=== PATIENT | female | born 1940 | race Caucasian/White ===

== ENCOUNTER → 2016-04-27 | Outpatient (CLI) | payer MEDICARE ==
[~2016-04-27] MED LIST: ASPIRIN 81MG TA81 MG PO; CELEXA10 MG PO; CITRACAL200 MG PO; CITRUCEL479 GM PO; CLARITIN 10MG T10 MG PO; CYANOCOBAL1000 MCG/M IM; CYMBALTA60 MG PO; DILTIAZEM240 MG PO; ELIQUIS2.5 MG PO; ELIQUIS5 MG PO; FLONASE 50 MCG16 GM; HYDROCHLOROTH12.5 M1 PO; LOVASTATIN20 MG PO; MIRALAX17 GM/PACK PO; OMEPRAZOLE20 MG PO; TOPROL XL 100M100 MG PO; TOPROL XL 50MG50 MG PO; TYLENOL 8 HOUR650 MG PO; TYLENOL ES500 MG PO; XANAX 0.5MG TA0.5 MG PO
--- NOTE | 2016-04-27 16:26 | RADIOLOGY REPORT PS360 ---
HUMERUS-RT HISTORY: FU FX HUMERUS COMPARISON: 04/11/2016 FINDINGS: The previously noted avulsion at the base of the greater tuberosity is less apparent on today's study suggesting healing. 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
== END ==
LOC: RAD 12:50
DX: S42.291D Other displaced fracture of upper end of right humerus, subsequent encounter for fracture with routine healing (principal)

== ENCOUNTER → 2016-10-02 | Outpatient (CLI) | payer MEDICARE ==
[~2016-10-02] MED LIST changes: +CELEXA20 MG PO; +METOPROLOL 25 M25 MG PO; +MICROZIDE12.5 MG PO
[2016-10-02 11:41] LABS: LYMPH # 1.7 K/mm3 (0.7-4.5); LYMPH % 14.8 % (10-50.0)
[2016-10-02 11:43] LABS: HEMOGLOBIN 8.7 g/dL (12.2-16.2)
== END ==
LOC: LAB 11:30
PROVIDERS: Internal Medicine
DX: I95.1 Orthostatic hypotension (principal)

== ENCOUNTER → 2016-11-20 | Outpatient (CLI) | payer MEDICARE ==
[~2016-11-20] MED LIST changes: +AMIODARONE 200200 MG PO; +AMIODARONE HCL400 MG PO; +CARDIZEM CD 12120 MG PO; +CYANOCOBAL1000 MCG/1 SC; +CYTOTEC 200MC200 MC1 PO; +DIGITEK125 MCG PO; +FERROUS SULFAT325 M2 PO; +LEVOTHYROXINE0.05 M2 PO; +MIRALAX(PO17 GM/1 PA PO; +PREDNISONE2.5 MG PO; +VERAPAMIL HYDR300 MG PO; +VITAMIN D31000 IU PO
[2016-11-20 11:15] LABS: BILIRUBIN, INDIRECT 0.21 mg/dL (0-0.9); BUN 13 mg/dL (7-18); FREE THYROXIN INDEX 8.7 ug/dl (5.93-13.13)
[2016-11-20 11:18] LABS: GFR (ESTIMATED) 48 ML/MIN (59-)
[2016-11-21 11:52] LABS: HEMOGLOBIN 12.4 g/dL (12.2-16.2); LYMPH # 1.8 K/mm3 (0.7-4.5); LYMPH % 20.3 % (10-50.0)
== END ==
LOC: LAB 09:55
PROVIDERS: Internal Medicine Cardiovascular Disease
DX: I48.91 Unspecified atrial fibrillation (principal); I10 Essential (primary) hypertension; E03.9 Hypothyroidism, unspecified; R53.83 Other fatigue; R53.1 Weakness; R68.89 Other general symptoms and signs; G47.10 Hypersomnia, unspecified

== ENCOUNTER → 2016-12-13 | Outpatient (CLI) | payer MEDICARE ==
[2016-12-13 15:35] LABS: BUN 13 mg/dL (7-18)
[2016-12-13 15:44] LABS: GFR (ESTIMATED) 54 ML/MIN (59-)
== END ==
LOC: LAB 12:29
PROVIDERS: Internal Medicine Cardiovascular Disease
DX: I48.91 Unspecified atrial fibrillation (principal); I10 Essential (primary) hypertension; E03.9 Hypothyroidism, unspecified; E78.5 Hyperlipidemia, unspecified; Z79.01 Long term (current) use of anticoagulants

== ENCOUNTER 2017-01-02 12:28 | Emergency (ER) | payer MEDICARE ==
[~2017-01-02] VITALS: Ht 165.1 cm; Wt 81.6 kg
--- NOTE | 2017-01-02 13:42 | Urgent Treatment Center Report ---
History of Present Issue Date/Time Seen by Provider 01/02/17 1316 Visit Reason Pt arrived:Walked Presenting Problem:SKIN TAG ON HER VAGINAL AREA THAT HAS BEEN THERE FOR 2 WEEKS AND IS S STARTING TO GET SORE Location if Accident: Onset of symptoms date/time:/ or onset unknown for:MEDICAL HX UNKNOWN Have you (or family members/close friends) recently traveled outside the [place]? N If Yes, where/when: Have you had exposure to infectious disease within the past month? TB? Other? Specify: Patient state that she noticed that she has a skin tag on he "lip" of her vagina. States that at times her underwear rubs it and it has been there for over 2 weeks States that she made an appointment with her OBGYN but he couldn't get her in to later in the month and she wanted to come to see if we could take it off ALLERGIES Coded Allergies: No Known Allergies (10/27/16) Home Medications Active Scripts Metoprolol Tartrate (Metoprolol 25MG) 50 MG PO BID #60 TAB Ref 2 Prov: 10/27/16 Amiodarone Hcl 400 MG PO BID #60 TAB Prov: 11/01/16 Diltiazem Hcl (Cardizem Cd 120MG Cap) 120 MG PO DAILY #30 CAP Prov: 11/01/16 Reported Medications Alprazolam (Xanax 0.5MG) 0.5 MG PO BIDP Lovastatin 20 MG PO QHS DULOXETINE HCL (Cymbalta 60MG) 30 MG PO DAILY Ferrous Sulfate (Ferrous Sulfate 325MG) 325 MG PO DAILY Prednisone 5 MG PO QAM VITAMIN B12 (Cyanocobalamin Injection) 1 ML IM DAILY CHOLECALCIFEROL (VITAMIN D3) (Vitamin D) 1 TAB PO DAILY Misoprostol (Cytotec 200MCG Tab) 200 MCG PO BID #60 TAB Levothyroxine Sodium 0.05 MG PO DAILY #90 Apixaban (Eliquis) 5 MG PO BID Omeprazole (Omeprazole 20MG) 20 MG PO DAILY History Medical History General CAD? No Angina: No [place]: No Hypertension? Yes Hyperlipidemia? Yes CHF? No DVT? No PE? No COPD? No Asthma? No Anemia? No GERD? Yes Gastric ulcers? No GI Bleed? No Hernia? No Thyroid Problems? Yes Hypothyroidism? Yes CVA? No Seizures? No Diabetes? No Renal Insuffiency? No UTI? Yes Stones? Yes BPH? No GB Disease: Yes Nephritic Syndrome? No Asplenia? No Hepatitis? No Sickle Cell Disease? No Arthritis? Yes Migraines? No Cataracts? No Glaucoma? No MRSA? No HIV? No TB? No Anxiety? Yes Depression? No Cancer? No More? Yes Additional hx: FIBROMYALGIA AFIB Immunization HX DT/Tetanus > 10 Years Ago Flu Flu Season Pneumonia Refuses Surgical Hx Previous Surgery?Y ANGIOGRAM 30 YRS AGO COLONOSCOPY FB REMOVAL LEFT LEG LAP [facility] (02/26/06) Family History Family HX Diabetes No CAD Yes Hypertension Yes Hyperlipidemia Yes Cancer No TB No Social History Smoking Hx Smoker: Never Smoker Tobacco: No Packs/day < 1 Pack Alcohol Alcohol: No Review of Systems All Other Systems Reviewed and Negative Physical Exam Vital Signs Vital Signs Date Time Temp Pulse Resp B/P Pulse O2 O2 Flow FiO2 Ox Delivery Rate 01/02 1244 97.8 78 14 140/82 98 General Appearance normal appearance, WD/WN, no apparent distress Respiratory Status Yes: trachea midline, chest symmetrical, non tender chest. No: respiratory distress. 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 No Progress [facility] Progress Notes Comment Talked with Dr Roque office advised that they would place patient customer operations specialist list if someone canceled to get her in sooner Departure Departure Time of Disposition 1334 Disposition DC Home or Self Care(routine) Clinical Impression Primary Impression: Skin tag of vaginal mucosa Condition STABLE Referrals Luis GARVEY,James Meadows (Family) Additional Instructions Follow up with Dr Muir as instructed Leave area alone and do not pull or touch area Follow up with family doctor if irritation continues Discharge Counseling Counseled pt/family regarding diagnosis, home care, follow up needs at 1341
--- NOTE | 2017-01-02 13:42 | Urgent Treatment Center Report ---
History of Present Issue Date/Time Seen by Provider 01/02/17 1316 Visit Reason Pt arrived:Walked Presenting Problem:SKIN TAG ON HER VAGINAL AREA THAT HAS BEEN THERE FOR 2 WEEKS AND IS S STARTING TO GET SORE Location if Accident: Onset of symptoms date/time:/ or onset unknown for:MEDICAL HX UNKNOWN Have you (or family members/close friends) recently traveled outside the [place]? N If Yes, where/when: Have you had exposure to infectious disease within the past month? TB? Other? Specify: Patient state that she noticed that she has a skin tag on he "lip" of her vagina. States that at times her underwear rubs it and it has been there for over 2 weeks States that she made an appointment with her OBGYN but he couldn't get her in to later in the month and she wanted to come to see if we could take it off ALLERGIES Coded Allergies: No Known Allergies (10/27/16) Home Medications Active Scripts Metoprolol Tartrate (Metoprolol 25MG) 50 MG PO BID #60 TAB Ref 2 Prov: 10/27/16 Amiodarone Hcl 400 MG PO BID #60 TAB Prov: 11/01/16 Diltiazem Hcl (Cardizem Cd 120MG Cap) 120 MG PO DAILY #30 CAP Prov: 11/01/16 Reported Medications Alprazolam (Xanax 0.5MG) 0.5 MG PO BIDP Lovastatin 20 MG PO QHS DULOXETINE HCL (Cymbalta 60MG) 30 MG PO DAILY Ferrous Sulfate (Ferrous Sulfate 325MG) 325 MG PO DAILY Prednisone 5 MG PO QAM VITAMIN B12 (Cyanocobalamin Injection) 1 ML IM DAILY CHOLECALCIFEROL (VITAMIN D3) (Vitamin D) 1 TAB PO DAILY Misoprostol (Cytotec 200MCG Tab) 200 MCG PO BID #60 TAB Levothyroxine Sodium 0.05 MG PO DAILY #90 Apixaban (Eliquis) 5 MG PO BID Omeprazole (Omeprazole 20MG) 20 MG PO DAILY History Medical History General CAD? No Angina: No [place]: No Hypertension? Yes Hyperlipidemia? Yes CHF? No DVT? No PE? No COPD? No Asthma? No Anemia? No GERD? Yes Gastric ulcers? No GI Bleed? No Hernia? No Thyroid Problems? Yes Hypothyroidism? Yes CVA? No Seizures? No Diabetes? No Renal Insuffiency? No UTI? Yes Stones? Yes BPH? No GB Disease: Yes Nephritic Syndrome? No Asplenia? No Hepatitis? No Sickle Cell Disease? No Arthritis? Yes Migraines? No Cataracts? No Glaucoma? No MRSA? No HIV? No TB? No Anxiety? Yes Depression? No Cancer? No More? Yes Additional hx: FIBROMYALGIA AFIB Immunization HX DT/Tetanus > 10 Years Ago Flu Flu Season Pneumonia Refuses Surgical Hx Previous Surgery?Y ANGIOGRAM 30 YRS AGO COLONOSCOPY FB REMOVAL LEFT LEG LAP [facility] (02/26/06) Family History Family HX Diabetes No CAD Yes Hypertension Yes Hyperlipidemia Yes Cancer No TB No Social History Smoking Hx Smoker: Never Smoker Tobacco: No Packs/day < 1 Pack Alcohol Alcohol: No Review of Systems All Other Systems Reviewed and Negative Physical Exam Vital Signs Vital Signs Date Time Temp Pulse Resp B/P Pulse O2 O2 Flow FiO2 Ox Delivery Rate 01/02 1244 97.8 78 14 140/82 98 General Appearance normal appearance, WD/WN, no apparent distress Respiratory Status Yes: trachea midline, chest symmetrical, non tender chest. No: respiratory distress. Cardiovascular normal exam, regular rate/rhythm, no peripheral edema, no gallop Pelvic small raised sking colored area on left labia no redness no warmth Neurologic alert, cyanide pot hardener II-XII nml as tested, normal exam, no motor/sensory deficits Medical Decision Making LABS/Meds/Orders Pt receiving controlled substance in ED? No Progress [facility] Progress Notes Comment Talked with Dr Roque office advised that they would place patient dog control officer list if someone canceled to get her in sooner Departure Departure Time of Disposition 1334 Disposition DC Home or Self Care(routine) Clinical Impression Primary Impression: Skin tag of vaginal mucosa Condition STABLE Referrals Luis GARVEY,James Meadows (Family) Additional Instructions Follow up with Dr Muir as instructed Leave area alone and do not pull or touch area Follow up with family doctor if irritation continues Discharge Counseling Counseled pt/family regarding diagnosis, home care, follow up needs at 1341
[2017-01-02 13:43] VITALS: BP 140/82
== END 2017-01-02 13:44 | disposition home or self-care (01) ==
LOC: UTC 12:28
DX: D28.0 Benign neoplasm of vulva (principal); I10 Essential (primary) hypertension; E78.5 Hyperlipidemia, unspecified; I48.2 Chronic atrial fibrillation; K21.9 Gastro-esophageal reflux disease without esophagitis; E03.9 Hypothyroidism, unspecified

== ENCOUNTER 2017-03-02 10:27 | Emergency (ER) | payer MEDICARE ==
[~2017-03-02] VITALS: Ht 165.1 cm; Wt 82.1 kg
--- OUTSIDE RECORDS SUMMARY | 2017-03-02 10:33 | External Medical Summary Rpt | CCD ---
Demographics Preferred Language Arabic Marital Status Unknown Sabianist Affiliation Unknown Race Unknown Ethnic Group Unknown Author Author , DAVIS CANNON Address Unknown Phone Immunization No patient found.
--- OUTSIDE RECORDS SUMMARY | 2017-03-02 10:33 | External Medical Summary Rpt | CCD ---
Demographics Preferred Language Persian Marital Status Unknown Anabaptist Affiliation Unknown Race Unknown Ethnic Group Unknown Author Author , DAVIS CANNON Address Unknown Phone Immunization No patient found.
--- OUTSIDE RECORDS SUMMARY | 2017-03-02 10:33 | External Medical Summary Rpt | CCD ---
Author Author , DAVIS CANNON Address Unknown Phone [email or web address] Purpose Continuity of Care Document - through 2016 Problems Code Diagnosis DOS Provider Status I48.91 UNSPECIFIED ATRIAL FIBRILLATIO N M54.2 CERVICALGIA N28.9 DISORDER OF KIDNEY AND URETER, UNSPECIFIED
--- OUTSIDE RECORDS SUMMARY | 2017-03-02 10:33 | External Medical Summary Rpt | CCD ---
Author Author , DAVIS CANNON Address Unknown Phone [email or web address] Purpose Continuity of Care Document - through 2016 Problems Code Diagnosis DOS Provider Status I48.91 UNSPECIFIED ATRIAL FIBRILLATIO N M54.2 CERVICALGIA N28.9 DISORDER OF KIDNEY AND URETER, UNSPECIFIED
--- NOTE | 2017-03-02 11:33 | Urgent Treatment Center Report ---
History of Present Issue Date/Time Seen by Provider 03/02/17 1132 Visit Reason Pt arrived:Wheelchair Presenting Problem:PT STATES SHE FELL AT HOME IN HER BATHROOM LAST NIGHT HITTING THE BACK OF HER HEAD AND INJURED LOWER BACK Location if Accident:Home Onset of symptoms date/time:02/19/17 or onset unknown for: Have you (or family members/close friends) recently traveled outside the [place]? N If Yes, where/when: Have you had exposure to infectious disease within the past month? TB? Other? Specify: Here w/ son and his fiance c/o low back pain after falling last night. States she was standing at her bathroom sink when she dropped the rag, bent over to get it but stepped on it instead. Slid, "flung to the side with my back up against the wall". Denies pain elsewhere. Reports hit back of head as well "but not too hard" and it isn't painful. Denies LOC, headache, dizziness or neck pain. No LE weakness aside from baseline, no N/T, no incontinence. Tylenol isn't helping. heating pad barely helps. Can't take NSAIDs "because of my kidneys". Pain currently 9/10. Worse with movement or if still too long. Source patient, family Exam Limitations clinical condition (pain) ALLERGIES Coded Allergies: No Known Allergies (10/27/16) Home Medications Active Scripts Metoprolol Tartrate (Metoprolol 25MG) 50 MG PO BID #60 TAB Ref 2 Prov: 10/27/16 Amiodarone Hcl 400 MG PO BID #60 TAB Prov: 11/01/16 Diltiazem Hcl (Cardizem Cd 120MG Cap) 120 MG PO DAILY #30 CAP Prov: 11/01/16 Reported Medications Alprazolam (Xanax 0.5MG) 0.5 MG PO BIDP Lovastatin 20 MG PO QHS DULOXETINE HCL (Cymbalta 60MG) 30 MG PO DAILY Ferrous Sulfate (Ferrous Sulfate 325MG) 325 MG PO DAILY Prednisone 5 MG PO QAM VITAMIN B12 (Cyanocobalamin Injection) 1 ML IM DAILY CHOLECALCIFEROL (VITAMIN D3) (Vitamin D) 1 TAB PO DAILY Misoprostol (Cytotec 200MCG Tab) 200 MCG PO BID #60 TAB Levothyroxine Sodium 0.05 MG PO DAILY #90 Apixaban (Eliquis) 5 MG PO BID Omeprazole (Omeprazole 20MG) 20 MG PO DAILY History Medical History General CAD? No Angina: No [place]: No Hypertension? Yes Hyperlipidemia? Yes CHF? No DVT? No PE? No COPD? No Asthma? No Anemia? No GERD? Yes Gastric ulcers? No GI Bleed? No Hernia? No Thyroid Problems? Yes Hypothyroidism? Yes CVA? No Seizures? No Diabetes? No Renal Insuffiency? No UTI? Yes Stones? Yes BPH? No GB Disease: Yes Nephritic Syndrome? No Asplenia? No Hepatitis? No Sickle Cell Disease? No Arthritis? Yes Migraines? No Cataracts? No Glaucoma? No MRSA? No HIV? No TB? No Anxiety? Yes Depression? No Cancer? No More? 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 Family History Family HX Diabetes No CAD Yes Hypertension Yes Hyperlipidemia Yes Cancer No TB No Social History Smoking Hx Smoker: Never Smoker Tobacco: No Packs/day < 1 Pack Alcohol Alcohol: No Review of Systems All Other Systems Reviewed and Negative (as appropriate for CC) Constitutional denies fever, denies malaise Eyes denies vision change Respiratory denies shortness of breath Cardiovascular denies chest pain Gastrointestinal denies abdominal pain Musculoskeletal see HPI, denies joint pain, denies joint swelling, muscle stiffness Skin denies change in color, denies lesions, denies lumps Psychiatric/Neurological see HPI Physical Exam Vital Signs Vital Signs Date Time Temp Pulse Resp B/P Pulse O2 O2 Flow FiO2 Ox Delivery Rate 03/02 1308 97.9 64 18 166/79 96 03/02 1154 18 03/02 1036 97.9 64 18 166 96 General Appearance mild distress, seated in W/C, repositioning frequently Neck normal inspection, non-tender, supple, full range of motion Respiratory Status Yes: chest symmetrical, non tender chest. No: respiratory distress. Lung Sounds bilateral: lungs clear. Cardiovascular regular rate/rhythm Gastrointestinal non tender, soft Back normal inspection, no vertebral tenderness, decreased range of motion, strt leg raising(L)-NML, strt leg raising(R)-NML, lumbar region tenderness with R>L but SI joint tenderness with L>R; flinching and grimacing throughout exam; appears very uncomfortable Extremities non-tender (BLE), slightly limited ROM margarita hips reported as her normal by patient. No pain with LE ROM Strength 5 Lower Ext (L), 5 Lower Ext (R) Neurologic alert, no motor/sensory deficits, oriented x 3 Reflexes Reflexes normal Yes (patellar) Skin intact, normal color, warm/dry Medical Decision Making LABS/Meds/Orders Pt receiving controlled substance in ED? Yes Andrew was queried for this patient? Yes Reference #: [id number] Risks/benefits of using a controlled substance for treatment were discussed w/pt by me (and her son) Comment alprazelam monthy all by Dr. Smith "for years" per patient. Has taken percocet in the past for various "aches or pains" without difficulty. Aware of risk for drowsiness and therefore, falls. Son and his fiance report someone will be with her as she also has a "caregiver" that comes daily. Results/Orders Current Medication Orders Sig/Anam Start time Last Medication Dose Route Stop Time Status Admin Tramadol HCl 50 MG ONCE ONE 03/02 1200 DC 03/02 PO 03/02 1201 1154 Tramadol HCl 0 .STK-MED ONE 03/02 1153 DC .ROUTE XRAY/CT/US XRAY/CT/US XRAY L-spine, T-spine XR interpretation by reviewed by me, discussed w/radiologist (read reports) Xray Results degenerative changes, no acute findings Progress [facility] Progress Notes Date 03/02/17 Time 1258 Comment "very minimal" improvement in pain since Tramadol but has also been to xray. Departure Departure Time of Disposition 1300 Disposition DC Home or Self Care(routine) Clinical Impression Primary Impression: Back pain Qualifiers: Back pain location: low back pain Chronicity: acute Back pain laterality: bilateral Sciatica presence: without sciatica Qualified Code: M54.5 - Low back pain Secondary Impressions: Fall Qualifiers: Encounter type: initial encounter Qualified Code: W19.XXXA - Unspecified fall, initial encounter Condition STABLE Referrals Luis GARVEY,James Meadows (Family) Seek immediate medical attention for new or worsening symptoms. Follow up with Dr. Smith on Sunday Patient Instructions DI for Low Back Pain, DI for Prescription Opioid Use, Thoracic Back Pain Additional Instructions * norco every 8 hours as needed for moderate to severe pain. You should not take this until at least after 4pm because of the medication given in the [facility]. * You have been prescribed a narcotic and like we discussed, this does come with risks like abuse, drowsiness, increased fall risk, theft and should be used cautiously and safeguarded. Pt and son agree to do so. * This medication contains tylenol. * Continue to avoid anti-inflammatories like you were told by Dr. Smith. He is not bonding machine tender for me to speak to today. * Ice x15-20 mins 3-4 times a day for first 48 hours after the initial injury followed by moist heat x15-20 mins 3-4 times a day to affected area * Keep this area active. No movement leads to more stiffness. However, take it easy too and avoid heavy lifting, pushing, pulling Discharge Counseling Counseled pt/family regarding diagnosis, test results, R/B of controlled subst., medications/RX, home care, follow up needs Prescriptions Current Visit Scripts HYDROCODONE/ACETAMINOPHEN ([place] 5-325 Tablet) 1 TAB PO Q8HP PRN moderate to severe pain #8 TAB will cause drowsiness and therefore, can increase fall risk. at 1012
--- NOTE | 2017-03-02 11:33 | Urgent Treatment Center Report ---
History of Present Issue Date/Time Seen by Provider 03/02/17 1132 Visit Reason Pt arrived:Wheelchair Presenting Problem:PT STATES SHE FELL AT HOME IN HER BATHROOM LAST NIGHT HITTING THE BACK OF HER HEAD AND INJURED LOWER BACK Location if Accident:Home Onset of symptoms date/time:02/19/17 or onset unknown for: Have you (or family members/close friends) recently traveled outside the [place]? N If Yes, where/when: Have you had exposure to infectious disease within the past month? TB? Other? Specify: Here w/ son and his fiance c/o low back pain after falling last night. States she was standing at her bathroom sink when she dropped the rag, bent over to get it but stepped on it instead. Slid, "flung to the side with my back up against the wall". Denies pain elsewhere. Reports hit back of head as well "but not too hard" and it isn't painful. Denies LOC, headache, dizziness or neck pain. No LE weakness aside from baseline, no N/T, no incontinence. Tylenol isn't helping. heating pad barely helps. Can't take NSAIDs "because of my kidneys". Pain currently 9/10. Worse with movement or if still too long. Source patient, family Exam Limitations clinical condition (pain) ALLERGIES Coded Allergies: No Known Allergies (10/27/16) Home Medications Active Scripts Metoprolol Tartrate (Metoprolol 25MG) 50 MG PO BID #60 TAB Ref 2 Prov: 10/27/16 Amiodarone Hcl 400 MG PO BID #60 TAB Prov: 11/01/16 Diltiazem Hcl (Cardizem Cd 120MG Cap) 120 MG PO DAILY #30 CAP Prov: 11/01/16 Reported Medications Alprazolam (Xanax 0.5MG) 0.5 MG PO BIDP Lovastatin 20 MG PO QHS DULOXETINE HCL (Cymbalta 60MG) 30 MG PO DAILY Ferrous Sulfate (Ferrous Sulfate 325MG) 325 MG PO DAILY Prednisone 5 MG PO QAM VITAMIN B12 (Cyanocobalamin Injection) 1 ML IM DAILY CHOLECALCIFEROL (VITAMIN D3) (Vitamin D) 1 TAB PO DAILY Misoprostol (Cytotec 200MCG Tab) 200 MCG PO BID #60 TAB Levothyroxine Sodium 0.05 MG PO DAILY #90 Apixaban (Eliquis) 5 MG PO BID Omeprazole (Omeprazole 20MG) 20 MG PO DAILY History Medical History General CAD? No Angina: No MS: No Hypertension? Yes Hyperlipidemia? Yes CHF? No DVT? No PE? No COPD? No Asthma? No Anemia? No GERD? Yes Gastric ulcers? No GI Bleed? No Hernia? No Thyroid Problems? Yes Hypothyroidism? Yes CVA? No Seizures? No Diabetes? No Renal Insuffiency? No UTI? Yes Stones? Yes BPH? No GB Disease: Yes Nephritic Syndrome? No Asplenia? No Hepatitis? No Sickle Cell Disease? No Arthritis? Yes Migraines? No Cataracts? No Glaucoma? No MRSA? No HIV? No TB? No Anxiety? Yes Depression? No Cancer? No More? 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 Hx LMP menopause Family History Family HX Diabetes No CAD Yes Hypertension Yes Hyperlipidemia Yes Cancer No TB No Social History Smoking Hx Smoker: Never Smoker Tobacco: No Packs/day < 1 Pack Alcohol Alcohol: No Review of Systems All Other Systems Reviewed and Negative (as appropriate for CC) Constitutional denies fever, denies malaise Eyes denies vision change Respiratory denies shortness of breath Cardiovascular denies chest pain Gastrointestinal denies abdominal pain Musculoskeletal see HPI, denies joint pain, denies joint swelling, muscle stiffness Skin denies change in color, denies lesions, denies lumps Psychiatric/Neurological see HPI Physical Exam Vital Signs Vital Signs Date Time Temp Pulse Resp B/P Pulse O2 O2 Flow FiO2 Ox Delivery Rate 03/02 1308 97.9 64 18 166/79 96 03/02 1154 18 03/02 1036 97.9 64 18 166 96 General Appearance mild distress, seated in W/C, repositioning frequently Neck normal inspection, non-tender, supple, full range of motion Respiratory Status Yes: chest symmetrical, non tender chest. No: respiratory distress. Lung Sounds bilateral: lungs clear. Cardiovascular regular rate/rhythm Gastrointestinal non tender, soft Back normal inspection, no vertebral tenderness, decreased range of motion, strt leg raising(L)-NML, strt leg raising(R)-NML, lumbar region tenderness with R>L but SI joint tenderness with L>R; flinching and grimacing throughout exam; appears very uncomfortable Extremities non-tender (BLE), slightly limited ROM margarita hips reported as her normal by patient. No pain with LE ROM Strength 5 Lower Ext (L), 5 Lower Ext (R) Neurologic alert, no motor/sensory deficits, oriented x 3 Reflexes Reflexes normal Yes (patellar) Skin intact, normal color, warm/dry Medical Decision Making LABS/Meds/Orders Pt receiving controlled substance in ED? Yes Andrew was queried for this patient? Yes Reference #: [id number] Risks/benefits of using a controlled substance for treatment were discussed w/pt by me (and her son) Comment alprazelam monthy all by Dr. Smith "for years" per patient. Has taken percocet in the past for various "aches or pains" without difficulty. Aware of risk for drowsiness and therefore, falls. Son and his fiance report someone will be with her as she also has a "caregiver" that comes daily. Results/Orders Current Medication Orders Sig/Anam Start time Last Medication Dose Route Stop Time Status Admin Tramadol HCl 50 MG ONCE ONE 03/02 1200 DC 03/02 PO 03/02 1201 1154 Tramadol HCl 0 .STK-MED ONE 03/02 1153 DC .ROUTE XRAY/CT/US XRAY/CT/US XRAY L-spine, T-spine XR interpretation by reviewed by me, discussed w/radiologist (read reports) Xray Results degenerative changes, no acute findings Progress [facility] Progress Notes Date 03/02/17 Time 1258 Comment "very minimal" improvement in pain since Tramadol but has also been to xray. Departure Departure Time of Disposition 1300 Disposition DC Home or Self Care(routine) Clinical Impression Primary Impression: Back pain Qualifiers: Back pain location: low back pain Chronicity: acute Back pain laterality: bilateral Sciatica presence: without sciatica Qualified Code: M54.5 - Low back pain Secondary Impressions: Fall Qualifiers: Encounter type: initial encounter Qualified Code: W19.XXXA - Unspecified fall, initial encounter Condition STABLE Referrals Luis GARVEY,[place] (Family) Seek immediate medical attention for new or worsening symptoms. Follow up with Dr. Smith on Sunday Patient Instructions DI for Low Back Pain, DI for Prescription Opioid Use, Thoracic Back Pain Additional Instructions * norco every 8 hours as needed for moderate to severe pain. You should not take this until at least after 4pm because of the medication given in the [facility]. * You have been prescribed a narcotic and like we discussed, this does come with risks like abuse, drowsiness, increased fall risk, theft and should be used cautiously and safeguarded. Pt and son agree to do so. * This medication contains tylenol. * Continue to avoid anti-inflammatories like you were told by Dr. Smith. He is not extrusion die coordinator for me to speak to today. * Ice x15-20 mins 3-4 times a day for first 48 hours after the initial injury followed by moist heat x15-20 mins 3-4 times a day to affected area * Keep this area active. No movement leads to more stiffness. However, take it easy too and avoid heavy lifting, pushing, pulling Discharge Counseling Counseled pt/family regarding diagnosis, test results, R/B of controlled subst., medications/RX, home care, follow up needs Prescriptions Current Visit Scripts HYDROCODONE/ACETAMINOPHEN ([place] 5-325 Tablet) 1 TAB PO Q8HP PRN moderate to severe pain #8 TAB will cause drowsiness and therefore, can increase fall risk. at 1017
--- NOTE | 2017-03-02 12:34 | RADIOLOGY REPORT PS360 ---
THORACIC SPINE-3V SWIMMERS COMPARISON: None HISTORY: Back pain after a fall TECHNIQUE: AP and lateral views and swimmer's view cervicothoracic junction FINDINGS: There is normal curvature and alignment. All thoracic vertebrae appear intact. There are multilevel degenerative changes with anterior and lateral osteophytic spurring. There are moderate degenerative changes in the lower portion of the cervical spine included on the swimmer's view. IMPRESSION: Multilevel degenerative changes, no acute thoracic spine pathology noted
--- NOTE | 2017-03-02 12:41 | RADIOLOGY REPORT PS360 ---
LUMBAR SPINE 5 VIEWS COMPARISON: Lumbar spine 03/28/2010 HISTORY: Low back pain after recent fall TECHNIQUE: AP lateral and oblique views and spot view lumbosacral junction FINDINGS: There is normal curvature and alignment. 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 There is prominent anterior osteophytic spurring at the L1-2 level. There is no acute compression fracture. There is no pars defect. The SI joints are normal. 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
[2017-03-02] MEDS ORDERED: NORCO 325 MG-51 TAB PO (13:07)
[2017-03-02 13:08] VITALS: BP 166/79
[2017-03-03] MEDS ORDERED: PREDNISONE 20MG20 MG PO (14:11)
[2017-03-03] MEDS ORDERED: PERCOCET 325 MG1 TA4 PO (14:11)
[2017-03-03] MEDS ORDERED: ZOFRAN4 MG PO (14:12)
[2017-03-19] MEDS ORDERED: PERCOCET 10 MG1 EACH PO (15:47)
== END 2017-03-02 13:08 | disposition home or self-care (01) ==
LOC: UTC 10:27
DX: M54.5 Low back pain (principal); W01.0XXA Fall on same level from slipping, tripping and stumbling without subsequent striking against object, initial encounter; Y92.012 Bathroom of single-family (private) house as the place of occurrence of the external cause; I10 Essential (primary) hypertension; E78.5 Hyperlipidemia, unspecified; K21.9 Gastro-esophageal reflux disease without esophagitis; E03.9 Hypothyroidism, unspecified; F41.9 Anxiety disorder, unspecified

== ENCOUNTER 2017-03-03 10:54 | Emergency (ER) | payer MEDICARE ==
[~2017-03-03] VITALS: Ht 165.1 cm; Wt 82.1 kg
[~2017-03-03 10:54] MED LIST changes: +NORCO 325 MG-51 TAB PO
--- OUTSIDE RECORDS SUMMARY | 2017-03-03 11:23 | External Medical Summary Rpt | CCD ---
Demographics Preferred Language Lao Marital Status Unknown Yarsanism Affiliation Unknown Race Unknown Ethnic Group Unknown Author Author , DAVIS CANNON Address Unknown Phone Immunization No patient found.
--- OUTSIDE RECORDS SUMMARY | 2017-03-03 11:23 | External Medical Summary Rpt | CCD ---
Author Author , DAVIS CANNON Address Unknown Phone [email or web address] Purpose Continuity of Care Document - 10-02-2016 through 2016 Problems Code Diagnosis DOS Provider Status I48.91 Unspecified atrial fibrillatio n M54.2 CERVICALGIA N28.9 DISORDER OF KIDNEY AND URETER, UNSPECIFIED Results Labs Lab Lab Date Result Refere Interp Status Commen Order Detail nces retati t Range on Hemoglobin.gastrointestinal [Presence] in Stool (10-12-2016 05:00) Hemoglo NEGATIV NEG complet bin.gas 017 E ed trointe 05:00 stinal [Presen ce] in Stool --1st specime n Hemoglobin.gastrointestinal [Presence] in Stool (10-11-2016 08:00) Hemoglo 10-11-2 NEGATIV NEG complet bin.gas 017 E ed trointe 08:00 stinal [Presen ce] in Stool --1st specime n Hemoglobin.gastrointestinal [Presence] in Stool (10-10-2016 08:30) Hemoglo 10-10-2 NEGATIV NEG complet bin.gas 017 E ed trointe 08:30 stinal [Presen ce] in Stool --1st specime n Blood product special preparation [Type] (10-05-2016 11:51) Blood BLOOD complet product 017 UNIT ed 11:51 RELEASE special prepara tion [Type] Blood product special preparation [Type] (10-05-2016 09:45) Blood 2 BLOOD complet product 017 UNIT ed 09:45 RELEASE special prepara tion [Type] Blood type & Crossmatch panel in Blood (10-04-2016 13:59) Blood 10-04-2 NEGATIV NEGATIV complet group 017 E E ed antibod 13:59 y screen [Presen ce] in Serum or Plasma Rh 10-04-2 POSITIV complet [Type] 017 E ed in 13:59 Blood ABO 10-04-2 O complet group 017 ed [Type] 13:59 in Blood Blood type & Crossmatch panel in Blood (10-04-2016 13:59) Major COMPAT complet crossma 017 ed tch 13:59 [interp retatio n] Major COMPAT complet crossma 017 ed tch 13:59 [interp retatio n] by Raya orona spin
--- OUTSIDE RECORDS SUMMARY | 2017-03-03 11:23 | External Medical Summary Rpt | CCD ---
Author Author , DAVIS CANNON Address Unknown Phone [email or web address] Purpose Continuity of Care Document - 10-02-2016 [...]
--- OUTSIDE RECORDS SUMMARY | 2017-03-03 11:23 | External Medical Summary Rpt | CCD ---
Demographics Preferred Language Slovenian Marital Status Unknown Rastafarian Affiliation Unknown Race Unknown Ethnic Group Unknown Author Author , DAVIS CANNON Address Unknown Phone Immunization No patient found.
--- OUTSIDE RECORDS SUMMARY | 2017-03-03 11:24 | External Medical Summary Rpt ---
Author Author DAVIS Bernardo, [employer] Address Unknown Phone Unavailable Results Basic metabolic panel in Blood Observa Value Referen Units Interpr Notes Date tion ce etation Range Urea 7 - 18 mg/dL Normal No Sep 6 nitrogen informati 2017 [Mass/vol on in 12:29 PM ume] in source Serum or data Plasma Calcium 8.5 - mg/dL Normal No Sep 6 [Mass/vol 10.1 informati 2017 ume] in on in 12:29 PM Serum or source Plasma data Chloride 98 - 107 mmoL/L Normal No Sep 6 [Moles/vo informati 2017 lume] in on in 12:29 PM Serum or source Plasma data Carbon 21.0 - mmoL/L Normal No Sep 6 dioxide, 32.0 informati 2017 total on in 12:29 PM [Moles/vo source lume] in data Serum or Plasma Creatinin 0.55 - mg/dL Normal No Sep 6 e 1.02 informati 2017 [Mass/vol on in 12:29 PM ume] in source Serum or data Plasma Estimated 59- ML/MIN Low REFERENCE Sep 6 RANGE: 2017 glomerula >60 12:29 PM r ML/MIN/1. filtratio 73 SQUARE n rate METERSIf (GF this patient is -A merican, then multiply theresult by 1.210. Glucose 74 - 106 mg/dL High No Sep 6 [Mass/vol informati 2017 ume] in on in 12:29 PM Serum or source Plasma data Potassium 3.5 - 5.1 mmoL/L Normal No Sep 6 informati 2017 [Moles/vo on in 12:29 PM lume] in source Serum or data Plasma Sodium 136 - 145 mmoL/L Normal No Sep 6 [Moles/vo informati 2017 lume] in on in 12:29 PM Serum or source Plasma data CBC W Auto Differential panel in Blood Observa Value Referen Units Interpr Notes Date tion ce etation Range Basophils 0 - 0.2 K/MM3 Normal No Nov 14 informati 2017 9:57 [#/volume on in AM ] in source Blood by data Automated count Basophils 0.1 - 2.0 % Normal No Nov 14 /100 informati 2017 9:57 leukocyte on in AM s in source Blood by data Automated count Eosinophi 0.0 - 0.4 K/mm3 Normal No Nov 14 ls informati 2016 9:57 [#/volume on in AM ] in source Blood by data Automated count Eosinophi 0.1 - % Normal No Nov 14 ls/100 12.0 informati 2016 9:57 leukocyte on in AM s in source Blood by data Automated count Granulocy 1.8 - 7.8 K/mm3 Normal No Nov 14 lc informati 2017 9:57 [#/volume on in AM ] in source Blood by data Automated count Granulocy 37.0 - % Normal No Nov 14 lc/100 80.0 informati 2016 9:57 leukocyte on in AM s in source Blood by data Automated count Hematocri 37.0 - % Normal No Nov 20 t [Volume 47.0 informati 2016 9:57 on in AM Fraction] source of Blood data Hemoglobi 12.2 - g/dL Normal No Nov 20 n 16.2 informati 2016 9:57 [Mass/vol on in AM ume] in source Blood data Lymphocyt 0.7 - 4.5 K/mm3 Normal No Nov 20 es informati 2016 9:57 [#/volume on in AM ] in source Unspecifi data ed specimen by Automated count Lymphocyt 10 - 50.0 % Normal No Nov 20 es informati 2016 9:57 [#/volume on in AM ] in source Unspecifi data ed specimen by Automated count Erythrocy 27 - 31.2 pg High No Nov 20 te mean informati 2016 9:57 corpuscul on in AM ar source hemoglobi data n [Entitic mass] Erythrocy 31.8 - g/dl Low Nov 20 te mean 35.4 informati 2017 9:57 corpuscul on in AM ar source hemoglobi data n concentra tion [Mass/vol ume] by Automated count Erythrocy 82.2 - fl High Nov 20 te mean 97.8 informati 2016 9:57 corpuscul on in AM ar volume source [Entitic data volume] by Automated count Monocytes 0.1 - 1.0 K/mm3 Normal No Nov 14 informati 2016 9:57 [#/volume on in AM ] in source Blood by data Automated count Monocytes 1.7 - 9.3 % Normal No Nov 14 /100 informati 2016 9:57 leukocyte on in AM s in source Blood by data Automated count Platelet 7.4 - fl Normal No Nov 14 mean 10.4 informati 2017 9:57 volume on in AM [Entitic source volume] data in Blood by Automated count Platelets 142 - 424 K/mm3 Normal No Nov 14 informati 2016 9:57 [#/volume on in AM ] in source Blood data Erythrocy 4.2 - 5.4 M/mm3 Low No Nov 20 lc informati 2017 9:57 [#/volume on in AM ] in source Amniotic data fluid Erythrocy 11.5 - % Normal Nov 20 te 17.5 informati 2016 9:57 distribut on in AM ion width source [Entitic data volume] by Automated count Leukocyte 4.8 - K/MM3 Normal No Nov 20 s 10.8 informati 2016 9:57 [#/volume on in AM ] in source Blood data Basic metabolic panel in Blood Observa Value Referen Units Interpr Notes Date tion ce etation Range Urea 7 - 18 mg/dL Normal No Nov 20 nitrogen informati 2016 9:57 [Mass/vol on in AM ume] in source Serum or data Plasma Calcium 8.5 - mg/dL Normal Nov 20 [Mass/vol 10.1 informati 2016 9:57 ume] in on in AM Serum or source Plasma data Chloride 98 - 107 mmoL/L Normal No Nov 20 [Moles/vo informati 2016 9:57 lume] in on in AM Serum or source Plasma data Carbon 21.0 - mmoL/L Normal No Nov 20 dioxide, 32.0 informati 2016 9:57 total on in AM [Moles/vo source lume] in data Serum or Plasma Creatinin 0.55 - mg/dL High No Nov 20 e 1.02 informati 2016 9:57 [Mass/vol on in AM ume] in source Serum or data Plasma Estimated 59- ML/MIN Low REFERENCE Nov 20 RANGE: 2017 9:57 glomerula >60 AM r ML/MIN/1. filtratio 73 SQUARE n rate METERSIf (GF this patient is -A merican, then multiply theresult by 1.210. Glucose 74 - 106 mg/dL High No Nov 20 [Mass/vol informati 2017 9:57 ume] in on in AM Serum or source Plasma data Potassium 3.5 - 5.1 mmoL/L Normal No Nov 14 informati 2017 9:57 [Moles/vo on in AM lume] in source Serum or data Plasma Sodium 136 - 145 mmoL/L Normal No Nov 14 [Moles/vo informati 2017 9:57 lume] in on in AM Serum or source Plasma data Hepatic function 2000 panel in Serum or Plasma Observa Value Referen Units Interpr Notes Date tion ce etation Range Albumin 3.4 - 5.0 gm/dL Low No Nov 20 [Mass/vol informati 2017 9:57 ume] in on in AM Serum or source Plasma data Alkaline 46 - 116 U/L Normal No Nov 20 phosphata informati 2017 9:57 se on in AM [Enzymati source c data activity/ volume] in Serum or Plasma Bilirubin 0.0 - 0.2 mg/dL Normal No Nov 14 .direct informati 2017 9:57 [Mass/vol on in AM ume] in source Serum or data Plasma Bilirubin 0 - 0.9 mg/dL Normal No Nov 20 .indirect informati 2017 9:57 on in AM [Mass/vol source ume] in data Serum or Plasma Bilirubin 0.2 - 1.0 mg/dL Normal No Nov 14 .total informati 2017 9:57 [Mass/vol on in AM ume] in source Serum or data Plasma Aspartate 15 - 37 U/L Normal No Nov 20 informati 2017 9:57 aminotran on in AM sferase source [Enzymati data c activity/ volume] in Serum or Plasma Alanine 12 - 78 U/L Normal No Nov 20 aminotran informati 2016 9:57 sferase on in AM [Enzymati source c data activity/ volume] in Serum or Plasma Protein 6.4 - 8.2 gm/dL Normal No Nov 14 [Mass/vol informati 2017 9:57 ume] in on in AM Serum or source Plasma data Free T4 & TSH panel in Serum or Plasma Observa Value Referen Units Interpr Notes Date tion ce etation Range Thyroxine 5.93 - ug/dl Normal No Nov 14 (T4) 13.13 informati 2017 9:57 free on in AM index in source Serum or data Plasma Triiodoth 31 - 39 % Normal No Nov 14 yronine informati 2017 9:57 (T3) on in AM resin source uptake in data Serum or Plasma Thyroxine 4.7 - ug/dl Normal No Nov 20 (T4) 13.3 informati 2016 9:57 [Mass/vol on in AM ume] in source Serum or data Plasma Thyrotrop 0.358 - uIU/ml No No Nov 20 in 3.740 informati informati 2016 9:57 [Units/vo on in on in AM lume] in source source Serum or data data Plasma CBC W Auto Differential panel in Blood Observa Value Referen Units Interpr Notes Date tion ce etation Range Granulocy 1.8 - 7.8 K/mm3 Normal No Oct 30 lc informati 2016 [#/volume on in 10:55 AM ] in source Blood by data Automated count Granulocy 37.0 - % Normal No Oct 30 lc/100 80.0 informati 2016 leukocyte on in 10:55 AM s in source Blood by data Automated count Hematocri 37.0 - % Low No Oct 30 t [Volume 47.0 informati 2016 on in 10:55 AM Fraction] source of Blood data Hemoglobi 12.2 - g/dL Low No Oct 30 n 16.2 informati 2016 [Mass/vol on in 10:55 AM ume] in source Blood data Lymphocyt 0.7 - 4.5 K/mm3 Normal No Oct 30 es informati 2016 [#/volume on in 10:55 AM ] in source Unspecifi data ed specimen by Automated count Lymphocyt 10 - 50.0 % Normal No Oct 30 es informati 2016 [#/volume on in 10:55 AM ] in source Unspecifi data ed specimen by Automated count Erythrocy 27 - 31.2 pg Normal No Oct 30 te mean inform2016 corpuscul on in 10:55 AM ar source hemoglobi data n [Entitic mass] Erythrocy 31.8 - g/dl Normal No Oct 30 te mean 35.4 informati 2016 corpuscul on in 10:55 AM ar source hemoglobi data n concentra tion [Mass/vol ume] by Automated count Erythrocy 82.2 - fL Normal No Oct 30 te mean 97.8 informati 2016 corpuscul on in 10:55 AM ar volume source [Entitic data volume] by Automated count Monocytes 0.1 - 1.0 K/mm3 Normal No Oct 30 informati 2016 [#/volume on in 10:55 AM ] in source Blood by data Automated count Monocytes 1.7 - 9.3 % Normal No Oct 30 /100 2016 leukocyte on in 10:55 AM s in source Blood by data Automated count Platelets 142 - 424 K/mm3 Normal No Oct 302016 [#/volume on in 10:55 AM ] in source Blood data Erythrocy 4.2 - 5.4 M/mm3 Low No Oct 30 lc 2016 [#/volume on in 10:55 AM ] in source Amniotic data fluid Erythrocy 11.5 - % Normal No Oct 30 te 17.5 2016 distribut on in 10:55 AM ion width source [Entitic data volume] by Automated count Leukocyte 4.8 - K/mm3 Normal No Oct 30 s 10.8 2016 [#/volume on in 10:55 AM ] in source Blood data INR in Blood by Coagulation assay Observa Value Referen Units Interpr Notes Date tion ce etation Range IS PATIENT ON ANTICOAGULANTS? N PTT RESULTS MUST BE CALLED IF PT ON HEPARIN!!! Y INR in 0.9 - 1.1 No High INDICATIO Oct 30 Blood by informati N 2016 Coagulati on in 10:55 AM on assay source INR data RANGETHER APY FOR DVT, PE, ATRIAL FIB; 2.0 - 3.0PROPHY LAXIS FOR VTETHERAP Y FOR MECHANICA L HEART 2.5 - 3.5VALVE; PREVENTIO N OF SYSTEMICE MBOLISM SECONDARY TO AMI Prothromb 9.4 - SECONDS High No Oct 30 in time 11.8 2016 (PT) in on in 10:55 AM Platelet source poor data plasma by Coagulati on assay Activated partial thrombplastin time (aPTT) in Platelet poor plasma by Coagulation assay Observa Value Referen Units Interpr Notes Date tion ce etation Range IS PATIENT ON ANTICOAGULANTS? N PTT RESULTS MUST BE CALLED IF PT ON HEPARIN!!! Y Activated 23.6 - SECONDS Normal No Oct 30 partial 34.0 2016 thrombpla on in 10:55 AM stin time source (aPTT) data in Platelet poor plasma by Coagulati on assay Digoxin [Mass/volume] in Serum or Plasma Observa Value Referen Units Interpr Notes Date tion ce etation Range Digoxin 1.15 - ng/mL Low No Oct 27 [Mass/vol 2.56 2016 ume] in on in 12:30 AM Serum or source Plasma data CBC W Auto Differential panel in Blood Observa Value Referen Units Interpr Notes Date tion ce etation Range Basophils 0 - 0.2 K/MM3 Normal No Oct 262016 [#/volume on in 11:05 PM ] in source Blood by data Automated count Basophils 0.1 - 2.0 % Normal No Oct 26 /2016 leukocyte on in 11:05 PM s in source Blood by data Automated count Eosinophi 0.0 - 0.4 K/mm3 Normal No Oct 26 ls 2016 [#/volume on in 11:05 PM ] in source Blood by data Automated count Eosinophi 0.1 - % Normal No Oct 26 ls/100 12.0 2016 leukocyte on in 11:05 PM s in source Blood by data Automated count Granulocy 1.8 - 7.8 K/mm3 Normal No Oct 26 lc 2016 [#/volume on in 11:05 PM ] in source Blood by data Automated count Granulocy 37.0 - % Normal No Oct 26 lc/100 80.0 2016 leukocyte on in 11:05 PM s in source Blood by data Automated count Hematocri 37.0 - % Normal No Oct 26 t [Volume 47.0 2016 on in 11:05 PM Fraction] source of Blood data Hemoglobi 12.2 - g/dL Normal No Oct 26 n 16.2 2016 [Mass/vol on in 11:05 PM ume] in source Blood data Lymphocyt 0.7 - 4.5 K/mm3 Normal No Oct 26 es 2016 [#/volume on in 11:05 PM ] in source Unspecifi data ed specimen by Automated count Lymphocyt 10 - 50.0 % Normal No Oct 26 es 2016 [#/volume on in 11:05 PM ] in source Unspecifi data ed specimen by Automated count Erythrocy 27 - 31.2 pg High No Oct 26 te mean 2016 corpuscul on in 11:05 PM ar source hemoglobi data n [Entitic mass] Erythrocy 31.8 - g/dl Normal No Oct 26 te mean 35.4 2016 corpuscul on in 11:05 PM ar source hemoglobi data n concentra tion [Mass/vol ume] by Automated count Erythrocy 82.2 - fl High No Oct 26 te mean 97.8 2016 corpuscul on in 11:05 PM ar volume source [Entitic data volume] by Automated count Monocytes 0.1 - 1.0 K/mm3 Normal No Oct 26 inform2016 [#/volume on in 11:05 PM ] in source Blood by data Automated count Monocytes 1.7 - 9.3 % Normal No Oct 26 /100 informati 2016 leukocyte on in 11:05 PM s in source Blood by data Automated count Platelet 7.4 - fl Normal No Oct 26 mean 10.4 informati 2016 volume on in 11:05 PM [Entitic source volume] data in Blood by Automated count Platelets 142 - 424 K/mm3 Normal No Oct 26 informati 2016 [#/volume on in 11:05 PM ] in source Blood data Erythrocy 4.2 - 5.4 M/mm3 Low No Oct 26 lc informati 2016 [#/volume on in 11:05 PM ] in source Amniotic data fluid Erythrocy 11.5 - % Normal No Oct 26 te 17.5 ati 2016 distribut on in 11:05 PM ion width source [Entitic data volume] by Automated count Leukocyte 4.8 - K/MM3 Normal No Oct 26 s 10.8 inform2016 [#/volume on in 11:05 PM ] in source Blood data Hemoglobin.gastrointestinal [Presence] in Stool Observa Value Referen Units Interpr Notes Date tion ce etation Range Hemoglo NEGATIV NEG No No No Oct 6 bin.gas E informa informa informa 2016 trointe tion in tion in tion in 5:00 AM stinal source source source [Presen data data data ce] in Stool --1st specime n Hemoglobin.gastrointestinal [Presence] in Stool Observa Value Referen Units Interpr Notes Date tion ce etation Range Hemoglo NEGATIV NEG No No No Oct 5 bin.gas E informa informa informa 2016 trointe tion in tion in tion in 8:00 AM stinal source source source [Presen data data data ce] in Stool --1st specime n Hemoglobin.gastrointestinal [Presence] in Stool Observa Value Referen Units Interpr Notes Date tion ce etation Range Hemoglo NEGATIV NEG No No No Oct 4 bin.gas E informa informa informa 2016 trointe tion in tion in tion in 8:30 AM stinal source source source [Presen data data data ce] in Stool --1st specime n Hemoglobin & Hematocrit panel in Blood Observa Value Referen Units Interpr Notes Date tion ce etation Range Hematocri 37.0 - % Low No Oct 05 t [Volume 47.0 informati 2017 3:10 on in PM Fraction] source of Blood data Hemoglobi 12.2 - g/dL Low No Oct 05 n 16.2 informati 2017 3:10 [Mass/vol on in PM ume] in source Blood data Blood product special preparation [Type] Observa Value Referen Units Interpr Notes Date ti ce etation Range Blood BLOOD No No No BLOOD Oct 05 product UNIT informa informa informa UNIT # 2017 RELEASE ti in in on in : W0382 11:51 special source source source 17 AM data data data [id number] prepara RELEASE tion D [Type] 7Boyers ,Lucind aO POSITIV E Blood product special preparation [Type] Observa Value Referen Units Interpr Notes Date ti ce etation Range Blood BLOOD No No No BLOOD Oct 05 product UNIT informa informa informa UNIT # 2017 RELEASE ti in in in : W0382 9:45 AM special source source source 17 data data data [id number] prepara RELEASE tion D [Type] 7Boyers ,Lucind aO POSITIV E Protein Electrophoresis Observa Value Referen Units Interpr Notes Date tion ce etation Range Protein 6.0 - 8.5 g/dL No No Oct 04 [Mass/vol informati informati 2017 2:05 ume] in on in on in PM Serum or source source Plasma data data Please Comment . No No Protein Oct 04 note: informa informa 2017 tion in in electro 2:05 PM source source phoresi data data s scan will follow via compute r,mail, or handkerchief maker manjula zeng at: [facility] - [facility] [address] [id number] Directo r: Surinder teixeira PhD, Phone: [phone] Albumin 2.9 - 4.4 g/dL No No Sep 28 [Mass/vol informati informati 2017 2:05 ume] in on in on in PM Serum or source source Plasma by data data Electroph oresis Alpha 1 0.0 - 0.4 g/dL No No Oct 04 globulin informati informati 2017 2:05 [Mass/vol on in on in PM ume] in source source Serum or data data Plasma by Electroph oresis Alpha 2 0.4 - 1.0 g/dL No No Oct 04 globulin informati informati 2017 2:05 [Mass/vol on in on in PM ume] in source source Serum or data data Plasma by Electroph oresis Beta 0.7 - 1.3 g/dL No No Oct 04 globulin informati informati 2017 2:05 [Mass/vol on in on in PM ume] in source source Serum or data data Plasma by Electroph oresis Gamma 0.4 - 1.8 g/dL No No Oct 04 globulin informati informati 2017 2:05 [Mass/vol on in on in PM ume] in source source Serum or data data Plasma by Electroph oresis Protein.m Not g/dL No ASYMMETRI Oct 04 onoclonal Observed informati PHU 2017 2:05 on in BETA-GAMM PM [Mass/vol source A REGION ume] in data Serum or Plasma by Electroph oresis Globulin 2.2 - 3.9 g/dL No No Oct 04 [Mass/vol informati informati 2017 2:05 ume] in on in on in PM Serum by source source calculati data data on Albumin/G 0.7 - 1.7 No No No Oct 04 lobulin informati informati informati 2016 2:05 [Mass on in on in on in PM ratio] in source source source Serum or data data data Plasma Ferritin [Mass/volume] in Serum or Plasma Observa Value Referen Units Interpr Notes Date tion ce etation Range Ferritin 8 - 388 ng/mL Normal No Oct 04 [Mass/vol informati 2016 2:05 ume] in on in PM Serum or source Plasma data Blood type & Crossmatch panel in Blood Observa Value Referen Units Interpr Notes Date tion ce etation Range Major COMPAT No No No No Oct 04 crossma informa informa informa informa 2017 tch tion in tion in tion in tion in 1:59 PM [interp source source source source retatio data data data data n] Major COMPAT No No No No Oct 04 crossma informa informa informa informa 2017 tch tion in tion in tion in tion in 1:59 PM [interp source source source source retatio data data data data n] by Immedia te spin Blood type & Crossmatch panel in Blood Observa Value Referen Units Interpr Notes Date ti ce etation Range Blood NEGATIV NEGATIV No No No Oct 04 group E E informa informa informa 2017 antibod tion in tion in tion in 1:59 PM y source source source screen data data data [Presen ce] in Serum or Plasma Rh POSITIV No No No No Oct 04 [Type] E informa informa informa informa 2017 in tion in tion in tion in tion in 1:59 PM Blood source source source source data data data data ABO O No No No No Oct 04 group informa informa informa informa 2017 [Type] tion in tion in tion in tion in 1:59 PM in source source source source Blood data data data data Blood type & Crossmatch panel in Blood Observa Value Referen Units Interpr Notes Date ti ce etation Range Major COMPAT No No No No Oct 04 crossma informa informa informa informa 2016 tch tion in tion in tion in tion in 1:59 PM [interp source source source source retatio data data data data n] Major COMPAT No No No No Oct 04 crossma informa informa informa informa 2016 tch tion in tion in tion in tion in 1:59 PM [interp source source source source retatio data data data data n] by Immedia te spin CBC W Auto Differential panel in Blood Observa Value Referen Units Interpr Notes Date ti ce etation Range Basophils 0 - 0.2 K/MM3 Normal No Oct 02 informati 2016 [#/volume on in 11:20 AM ] in source Blood by data Automated count Basophils 0.1 - 2.0 % Normal No Oct 02 /100 informati 2016 leukocyte on in 11:20 AM s in source Blood by data Automated count Eosinophi 0.0 - 0.4 K/mm3 Normal No Oct 02 ls informati 2016 [#/volume on in 11:20 AM ] in source Blood by data Automated count Eosinophi 0.1 - % Normal No Oct 02 ls/100 12.0 inform2016 leukocyte on in 11:20 AM s in source Blood by data Automated count Granulocy 1.8 - 7.8 K/mm3 High No Oct 02 lc informati 2016 [#/volume on in 11:20 AM ] in source Blood by data Automated count Granulocy 37.0 - % Normal No Oct 02 lc/100 80.0 inform2016 leukocyte on in 11:20 AM s in source Blood by data Automated count Hematocri 37.0 - % Low No Oct 02 t [Volume 47.0 informati 2016 on in 11:20 AM Fraction] source of Blood data Hemoglobi 12.2 - g/dL Low No Oct 02 n 16.2 informati 2016 [Mass/vol on in 11:20 AM ume] in source Blood data Lymphocyt 0.7 - 4.5 K/mm3 Normal No Oct 02 es informati 2016 [#/volume on in 11:20 AM ] in source Unspecifi data ed specimen by Automated count Lymphocyt 10 - 50.0 % Normal No Oct 02 es inform2016 [#/volume on in 11:20 AM ] in source Unspecifi data ed specimen by Automated count Erythrocy 27 - 31.2 pg High No Oct 02 te mean inform2016 corpuscul on in 11:20 AM ar source hemoglobi data n [Entitic mass] Erythrocy 31.8 - g/dl Low No Oct 02 te mean 35.4 inform2016 corpuscul on in 11:20 AM ar source hemoglobi data n concentra tion [Mass/vol ume] by Automated count Erythrocy 82.2 - fl High No Oct 02 te mean 97.8 informati 2016 corpuscul on in 11:20 AM ar volume source [Entitic data volume] by Automated count Monocytes 0.1 - 1.0 K/mm3 Normal No Oct 02 informati 2016 [#/volume on in 11:20 AM ] in source Blood by data Automated count Monocytes 1.7 - 9.3 % Normal No Oct 02 /100 informati 2016 leukocyte on in 11:20 AM s in source Blood by data Automated count Platelet 7.4 - fl Normal No Oct 02 mean 10.4 informati 2016 volume on in 11:20 AM [Entitic source volume] data in Blood by Automated count Platelets 142 - 424 K/mm3 No No Oct 02 informati informati 2016 [#/volume on in on in 11:20 AM ] in source source Blood data data Erythrocy 4.2 - 5.4 M/mm3 Low No Oct 02 lc informati 2016 [#/volume on in 11:20 AM ] in source Amniotic data fluid Erythrocy 11.5 - % Normal No Oct 02 te 17.5 informati 2016 distribut on in 11:20 AM ion width source [Entitic data volume] by Automated count Leukocyte 4.8 - K/MM3 High No Oct 02 s 10.8 informati 2016 [#/volume on in 11:20 AM ] in source Blood data
--- OUTSIDE RECORDS SUMMARY | 2017-03-03 11:24 | External Medical Summary Rpt ---
[...] source source 17 AM data data data [id number] prepara RELEASE tion D [Type] 7Boyers ,Lucind aO POSITIV E Blood product special preparation [Type] Observa Value Referen Units Interpr Notes Date ti ce etation Range Blood BLOOD No No No BLOOD Oct 05 product UNIT informa informa informa UNIT # 2017 RELEASE ti in in in : [id number] 9:45 AM special source source source 17 data data data [id number] prepara RELEASE tion D [Type] 7Boyers ,Lucind [...] scan will follow via compute r,mail, or teleprinter installer manjula zeng at: [facility] - [facility] [address] [id number] Directo r: Surinder teixeira PhD, Phone: [phone] Albumin 2.9 - 4.4 g/dL No No [...]
--- NOTE | 2017-03-03 11:39 | Emergency Room Report ---
History of Present Illness Time Seen by 1102 Presenting Problem in Triage Pt arrived:Wheelchair Presenting Problem:PT STATES SHE FELL ON SUNDAY NIGHT SHE SLIPPED ON A WASH RAG. PT REPORTS THAT SHE WENT TO [facility] YESTERDAY HAD X-RAYS OF SPINE DONE BUT THE PAIN IS WORSE AND THE PAIN IS IN HER LOWER BACK HIP TO HIP. 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 N Clinical Suspician of Infection? N Mental Status: 1 - Regular (Normal Baseline) Sepsis Risk:Low Sepsis Risk Have you (or family members/close friends) recently traveled outside the [place]? N If Yes, where/when: Have you had exposure to infectious disease within the past month? N TB? Other? Specify: Source patient, RN notes reviewed, family, old records Exam Limitations no limitations Comment fell with back pain on with back pain with visit [facility] sun[facility] and has persistant pain despite home meds - pt on blood thinner - no cauda equina sx - no fever or rash Cardiac Chest Pain Chest pain indicative of cardiac No Timing/Duration this evening Severity moderate ALLERGIES Coded Allergies: No Known Allergies (10/27/16) Home Medications Active Scripts Metoprolol Tartrate (Metoprolol 25MG) 50 MG PO BID #60 TAB Ref 2 Prov: 10/27/16 Amiodarone Hcl 400 MG PO BID #60 TAB Prov: 11/01/16 Diltiazem Hcl (Cardizem Cd 120MG Cap) 120 MG PO DAILY #30 CAP Prov: 11/01/16 HYDROCODONE/ACETAMINOPHEN ([place] 5-325 Tablet) 1 TAB PO Q8HP PRN moderate to severe pain #8 TAB Prov: 03/02/17 Reported Medications Alprazolam (Xanax 0.5MG) 0.5 MG PO BIDP Lovastatin 20 MG PO QHS DULOXETINE HCL (Cymbalta 60MG) 30 MG PO DAILY Ferrous Sulfate (Ferrous Sulfate 325MG) 325 MG PO DAILY Prednisone 5 MG PO QAM VITAMIN B12 (Cyanocobalamin Injection) 1 ML IM DAILY CHOLECALCIFEROL (VITAMIN D3) (Vitamin D) 1 TAB PO DAILY Misoprostol (Cytotec 200MCG Tab) 200 MCG PO BID #60 TAB Levothyroxine Sodium 0.05 MG PO DAILY #90 Apixaban (Eliquis) 5 MG PO BID Omeprazole (Omeprazole 20MG) 20 MG PO DAILY History Medical History General CAD? No Angina: No MO: No Hypertension? Yes Hyperlipidemia? Yes CHF? No DVT? No PE? No COPD? No Asthma? No Anemia? No GERD? Yes Gastric ulcers? No GI Bleed? No Hernia? No Thyroid Problems? Yes Hypothyroidism? Yes CVA? No Seizures? No Diabetes? No Renal Insuffiency? No End Stage Renal Disease? No UTI? Yes Stones? Yes BPH? No GB Disease: Yes Nephritic Syndrome? No Asplenia? No Hepatitis? No Sickle Cell Disease? No Arthritis? Yes Migraines? No Cataracts? No Glaucoma? No MRSA? No HIV? No TB? No Anxiety? Yes Depression? No Cancer? No More? Yes Additional hx: FIBROMYALGIA AFIB Immunization Hx DT/Tetanus > 10 Years Ago Flu 2016-17FSN Pneumonia Refuses Surgical Hx Previous Surgery?Y ANGIOGRAM 30 YRS AGO COLONOSCOPY FB REMOVAL LEFT LEG LAP L[facility] (02/26/06) Family History Family Hx Diabetes No CAD Yes Hypertension Yes Hyperlipidemia Yes Cancer No TB No Social History Smoking Hx Smoker: Current Every Day Smoker Tobacco: Yes Type Cigarettes Packs/day < 1 Pack Alcohol Alcohol: No Drugs none Review of Systems All Other Systems Reviewed and Negative Constitutional denies fever Eyes denies drainage ENT denies: ear discharge, epistaxis, throat pain. Respiratory denies cough, denies shortness of breath, denies wheezing Cardiovascular denies chest pain, denies palpitations, denies syncope Gastrointestinal see HPI, denies abdominal pain, denies diarrhea, nausea, denies vomiting Genitourinary denies: dysuria, frequency, hesitancy, hematuria. Musculoskeletal see HPI, back pain, denies joint pain, denies joint swelling, denies neck pain Skin denies rash Psychiatric/Neurological denies headache, denies seizure Physical Exam Vital Signs Vital Signs Date Time Temp Pulse Resp B/P Pulse O2 O2 Flow FiO2 Ox Delivery Rate 03/03 1410 18 03/03 1349 97.5 67 18 151/57 93 03/03 1235 66 18 163/74 93 03/03 1059 97.5 68 18 167/74 95 - WBC >12,000 or <4,000 or 10% bands? 2 or more SIRS Criteria Met? B/P:151/57 MAP:105 Creatinine >2.0? UA output<0.5ml/kg/hr for 2 hrs? Platelet count >100,000? Lactate >2.0mmol/1? INR >1.2 or PTT > than 60 sec? Evidence of Organ Dysfunction? Provider documented clinical suspician of infection? N Sepsis Criteria Count: 0 Sepsis Risk: Low Sepsis Risk General Appearance no apparent distress Eye Exam - bilateral eye PERRL, bilateral eye EOMI Ear, Nose, Throat normal ENT inspection Neck supple Respiratory Status No: respiratory distress. 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 No Results/Orders Laboratory Tests 03/03/17 1135: Urine Color YELLOW, Urine Appearance CLEAR, Urine pH 6.0, Ur Specific [place] 1.020, Urine Protein NEGATIVE, Urine Ketones NEGATIVE, Urine Blood NEGATIVE, Urine Nitrate NEGATIVE, Urine Bilirubin NEGATIVE, Urine Urobilinogen 0.2, Ur Leukocyte Esterase NEGATIVE, Urine WBC OCC, Ur Squamous Epith Cells OCC, Urine Bacteria 1+, Urine Mucus 1+, Urine Glucose NEGATIVE 03/03/17 1130: Sodium 137, Potassium 4.4, Chloride 100, Carbon Dioxide 29, BUN 13, Creatinine 1.0, Estimated Creat Clear 61, Estimated GFR (MDRD) 54 L, Glucose 130 H, Calcium 9.2, Total Bilirubin 0.8, AST 24, ALT 29, Alkaline Phosphatase 45 L, Total Protein 7.1, Albumin 3.3 L, Globulin 3.8 H, Albumin/Globulin Ratio 0.9 L, WBC 8.4, RBC 3.62 L, Hgb 12.6, Hct 38.7, MCV 106.7 H, RDW 14.3, Plt Count 174, MPV 8.1, Gran % 76.5, Gran # 6.5, Lymphocytes % 14.2, Monocytes % 6.1, Eosinophils % 2.6, Basophils % 0.5, Lymphocytes # 1.2, Monocytes # 0.5, Eosinophils # 0.2, Basophils # 0.0, PUBS MCHC 32.6, ESR 35 H, MCH 34.8 H Current Medication Orders Sig/Anam Start time Last Medication Dose Route Stop Time Status Admin Methylprednisolone 125 MG ONCE ONE 03/03 1415 AC 03/03 Sodium Succinate IV 03/03 1416 1409 Ondansetron HCl 4 MG ONCE ONE 03/03 1415 AC 03/03 IV 03/03 1416 1409 Methylprednisolone 0 .STK-MED ONE 03/03 1403 DC Sodium Succinate .ROUTE Morphine Sulfate 0 .STK-MED ONE 03/03 1403 DC .ROUTE Ondansetron HCl 0 .STK-MED ONE 03/03 1403 DC .ROUTE Morphine Sulfate 4 MG ONCE ONE 03/03 1400 DC 03/03 IV 03/03 1401 1410 Sodium Chloride 10 ML PRN PRN 03/03 1130 AC IV 03/04 1120 Orders Procedure Date/time Status DIET-NOTHING BY MOUTH 03/[address] SCAN REQ 03/[address] SCAN REQ 03/03 1121 Complete IV SALINE LOCK 03/03 1121 Active URINALYSIS/COMPLETE 03/03 1121 Complete SED RATE 03/03 1121 Complete COMPLETE METABOLIC PANEL 03/03 1121 Complete CBC WITH AUTO DIFF 03/03 1121 Complete XRAY/CT/US XRAY/CT/US 1 XRAY pelvis XR interpretation by reviewed by me Xray Results no fracture seen XRAY/CT/US 2 CT abdomen, pelvis, L-spine CT interpretation by discussed w/radiologist Time results known: 1409 CT Results abnormal (l3 fx) Departure Departure Time of Disposition 1402 Disposition DC Home or Self Care(routine) Clinical Impression Primary Impression: Lumbar compression fracture Qualifiers: Encounter type: initial encounter Lumbar vertebra fracture level: L3 Fracture type: closed Qualified Code: S32.030A - Wedge compression fracture of third lumbar vertebra, initial encounter for closed fracture Condition STABLE Referrals Luis GARVEY,[place] Patient Instructions DI for Vertebral Fracture Additional Instructions use meds and see pcp for follow up Discharge Counseling Counseled pt/family regarding diagnosis, test results, medications/RX, follow up needs Prescriptions Current Visit Scripts Prednisone (Prednisone 20MG) 20 MG PO BID #6 TAB OXYCODONE HCL/ACETAMINOPHEN (Percocet 7.5-325 MG Tablet) 1 TAB PO Q6HP PRN pain #10 TAB ONDANSETRON HCL (Zofran 4MG Tab) 4 MG PO Q6HP PRN NAUSEA AND VOMITING #20 TAB ED Critical Care Critical Care No at 1412
[2017-03-03 11:45] LABS: HEMOGLOBIN 12.6 g/dL (12.2-16.2); LYMPH # 1.2 K/mm3 (0.7-4.5); LYMPH % 14.2 % (10-50.0)
[2017-03-03 11:50] LABS: URINE BILIRUBIN - DIPSTICK NEGATIVE (NEG); URINE BLOOD NEGATIVE (NEG)
[2017-03-03 11:59] LABS: URINE SQUAMOUS CELLS OCC #/hpf (0-5)
--- NOTE | 2017-03-03 12:41 | RADIOLOGY REPORT PS360 ---
CT ABD PELVIS W/O CONTRAST COMPARISON: None HISTORY: Fell 2 days ago complaining low back pain TECHNIQUE: Multiaxial scans obtained from hemidiaphragms the pelvic floor and were performed without IV or oral contrast. Sagittal and coronal reformats were evaluated as well. FINDINGS: The lower lung rivero are clear of active infiltrate or mild chronic interstitial changes in both posterior gutters. There is gross generalized cardio megaly with left reticular prominence. There is a large hiatal hernia which is likely a combination sliding and appear esophageal hiatal hernia. Liver spleen remain in the stomach and pancreas appear normal. There is been a previous cholecystectomy. The adrenal glands are normal. The kidneys are lower limits of normal in size and in no calculi and is no obstructive uropathy. There is abundant fat within the mesentery. The small bowel appears normal. The appendix is normal. There is moderate stool in ascending colon. The uterus and adnexa are normal, the urinary bladder is normal. There is no free fluid in the pelvis. There is a tiny umbilical hernia containing fat only. There is a mild acute compression fracture of L3 with only prostate cancer some loss of height. The remaining lumbar vertebrae appear intact. There is generalized osteopenia. IMPRESSION 1.: Mild acute compression fracture L3 2. Moderately large hiatal hernia
--- NOTE | 2017-03-03 13:25 | RADIOLOGY REPORT PS360 ---
CT LUMBAR SPINE W/O CONTRAST COMPARISON: Plain films lumbar spine 03/02/2017 HISTORY: Fell 2 days ago complaining low back pain TECHNIQUE: FINDINGS: Probably no more than 10% loss of height. There is prominent anterior ossific spurring at the L1-2 level. The spinal canal is normal size throughout. There is mild diffuse disc bulge L4-5. There are hypertrophic facet changes at L4-5 and L5-S1 levels. IMPRESSION: Generalized osteopenia mild acute compression fracture L3 is noted
--- NOTE | 2017-03-03 13:25 | RADIOLOGY REPORT PS360 ---
PELVIS AP ONLY COMPARISON: AP pelvis 08/16/2016 HISTORY: Epigastric pain after a fall TECHNIQUE: AP pelvis FINDINGS: The iliac bones and pubic bones appear intact. Both hips are normally articulated with no evidence of fracture. The SI joints and symphysis pubis per normal. IMPRESSION: AP pelvis
[2017-03-03] MEDS ORDERED: PERCOCET 325 MG1 TA4 PO (14:11)
[2017-03-03] MEDS ORDERED: PREDNISONE 20MG20 MG PO (14:11)
[2017-03-03] MEDS ORDERED: ZOFRAN4 MG PO (14:12)
[2017-03-03 14:13] VITALS: BP 151/57
[2017-03-19] MEDS ORDERED: PERCOCET 10 MG1 EACH PO (15:47)
== END 2017-03-03 14:20 | disposition home or self-care (01) ==
LOC: ER 10:54
PROVIDERS: Emergency Medicine
DX: S32.030A Wedge compression fracture of third lumbar vertebra, initial encounter for closed fracture (principal); W01.0XXA Fall on same level from slipping, tripping and stumbling without subsequent striking against object, initial encounter; Y92.019 Unspecified place in single-family (private) house as the place of occurrence of the external cause; I10 Essential (primary) hypertension; E78.5 Hyperlipidemia, unspecified; E03.9 Hypothyroidism, unspecified; I48.2 Chronic atrial fibrillation; F17.210 Nicotine dependence, cigarettes, uncomplicated
CPT/HCPCS: J2405

== ENCOUNTER 2017-03-09 10:16 | Emergency (ER) | payer MEDICARE ==
[~2017-03-09] VITALS: Ht 165.1 cm; Wt 82.1 kg
[~2017-03-09 10:16] MED LIST changes: +PERCOCET 325 MG1 TA4 PO; +PREDNISONE 20MG20 MG PO; +ZOFRAN4 MG PO
--- OUTSIDE RECORDS SUMMARY | 2017-03-09 10:52 | External Medical Summary Rpt | CCD ---
Author Author , DAVIS Organization DAVIS Address Unknown Phone [email or web address] Purpose Continuity of Care Document - 10-02-2016 through 2016 Problems Code Diagnosis DOS Provider Status I48.91 UNSPECIFIED ATRIAL FIBRILLATIO N M54.2 CERVICALGIA N28.9 DISORDER OF KIDNEY AND URETER, UNSPECIFIED S32.000A WEDGE COMPRESSION FRACTURE OF UNSP LUMBAR VERTEBRA, INIT Results Labs Lab Lab Date Result Refere Interp Status Commen Order Detail nces retati t Range on Urinalysis with microscopy (03-03-2017 11:35) Urine = OCC O complet leukocy 017 wbc/hpf ed cl 11:35 count (number /volume ) Urine 0.2 0.2 NEG complet urobili 017 L ed nogen 11:35 E.U./dL detecti on by test str [place] OCC OCC 0-5 complet s 017 L ed epithel 11:35 #/hpf ial cells detecti on in u Urine = 1.020 1.005-1 complet specifi 017 .030 ed c 11:35 gravity measure ment Urine = NEG complet protein 017 NEGATIV ed 11:35 E mg/dL measure ment by automat ed t Urine NEGATIV NEG complet nitrite 017 E ed 11:35 NEGATIV detecti E L on by test strip Mucus 1+ 1+ L OCC complet detecti 017 ed on in 11:35 urine sedimen t by lig Mucus NEGATIV NEG complet detecti 017 E ed on in 11:35 NEGATIV urine E L sedimen t by lig Urine NEGATIV NEG complet ketones 017 E ed 11:35 NEGATIV detecti E L on by mg/dL automat ed lc Glucose = NEG complet ur 017 NEGATIV ed test 11:35 E strip Urine YELLOW YELLOW complet color 017 YELLOW ed 11:35 L Urine NEGATIV NEG complet blood 017 E ed detecti 11:35 NEGATIV on E L Urine NEGATIV NEG complet total 017 E ed bilirub 11:35 NEGATIV in E L detecti on by test Bacteri 03-03-2 1+ 1+ L O complet a 017 ed detecti 11:35 on in urine sedimen t by Urine CLEAR CLEAR complet appeara 017 CLEAR L ed nce 11:35 determi nation Urine 2 = 6.0 5.0-8.5 complet pH 017 ed 11:35 Urinalysis dipstick W Reflex Microscopic panel in Urine (03-03-2017 11:35) Bacteri 1+ O complet a 017 ed [Presen 11:35 ce] in Urine sedimen t by Light microsc opy Mucus 1+ OCC complet [Presen 017 ed ce] in 11:35 Urine sedimen t by Light microsc opy Epithel 2 OCC 0#/hp complet ial 017 f - ed cells.s 11:35 5#/hp quamous f [Presen ce] in Urine sedimen t by Microsc opy high power field Urinalysis dipstick W Reflex Microscopic panel in Urine (03-03-2017 11:35) Appeara CLEAR CLEAR complet nce of 017 ed Urine 11:35 Bilirub NEGATIV NEG complet in 017 E ed [Presen 11:35 ce] in Urine by Test strip Erythro NEGATIV NEG complet cytes 017 E ed [Presen 11:35 ce] in Urine Color YELLOW YELLOW complet of 017 ed Urine 11:35 Ketones NEGATIV NEG complet 017 E ed [Presen 11:35 ce] in Urine by Automat ed test strip Mucus 03-03-2 NEGATIV NEG complet [Presen 017 E ed ce] in 11:35 Urine sedimen t by Light microsc opy Nitrite NEGATIV NEG complet 017 E ed [Presen 11:35 ce] in Urine by Test strip Urobili 03-03-2 0.2 NEG complet nogen 017 ed [Presen 11:35 ce] in Urine by Test strip Erythrocyte sedimentation rate by richard (03-03-2017 11:30) Erythro = 35 0-30 complet cyte 017 mm/hr ed sedimen 11:30 tation rate by richard CBC w auto diff (03-03-2017 11:30) Blood = 8.4 4.8-10. complet leukocy 017 K/MM3 8 ed lc 11:30 count (number /volume ) Automat = 14.3 11.5-17 complet ed 017 % .5 ed erythro 11:30 cyte distrib ution width Red = 3.62 4.2-5.4 complet blood 017 M/mm3 ed cell 11:30 count Blood = 174 142-424 complet platele 017 K/mm3 ed t count 11:30 Automat = 8.1 7.4-10. complet ed 017 fl 4 ed blood 11:30 platele t mean volume tank [place] % = 6.1 % 1.7-9.3 complet 017 ed 11:30 Absolut = 0.5 0.1-1.0 complet e 017 K/mm3 ed monocyt 11:30 e count Automat = 106.7 82.2-97 complet ed 017 fl .8 ed erythro 11:30 cyte mean corpusc ular v Automat = 32.6 31.8-35 complet ed 017 g/dl .4 ed erythro 11:30 cyte mean corpusc ular h Mean = 34.8 27-31.2 complet corpusc 017 pg ed ular 11:30 hemoglo bin (MCH) determ Lymphoc = 14.2 10-50.0 complet yte 017 % ed count, 11:30 blood, automat ed Absolut = 1.2 0.7-4.5 complet e 017 K/mm3 ed lymphoc 11:30 yte count Blood = 12.6 12.2-16 complet hemoglo 017 g/dL .2 ed bin 11:30 measure ment (mass/v olum Blood = 38.7 37.0-47 complet hematoc 017 % .0 ed rit 11:30 (volume fractio n) Granulo = 76.5 37.0-80 complet cyte 017 % .0 ed percent 11:30 age Blood = 6.5 1.8-7.8 complet granulo 017 K/mm3 ed cytes 11:30 automat ed count (numb Automat = 2.6 % 0.1-12. complet ed 017 0 ed blood 11:30 eosinop hils/10 0 leukocy t Automat = 0.2 0.0-0.4 complet ed 017 K/mm3 ed blood 11:30 eosinop hil count Baso % = 0.5 % 0.1-2.0 complet 017 ed 11:30 Automat = 0.0 0-0.2 complet ed 017 K/MM3 ed blood 11:30 basophi l count (count/ vo Comprehensive metabolic panel (03-03-2017 11:30) Protein = 7.1 6.4-8.2 complet total 017 gm/dL ed ser/suzette 11:30 s ALT = 29 12-78 complet (SGPT) 017 U/L ed ser/suzette 11:30 s Serum = 24 15-37 complet or 017 U/L ed plasma 11:30 asparta te aminotr ansfera Serum = 137 136-145 complet sodium 017 mmoL/L ed measure 11:30 ment Serum = 4.4 3.5-5.1 complet potassi 017 mmoL/L ed um 11:30 measure ment Serum = 130 74-106 complet or 017 mg/dL ed plasma 11:30 glucose measure ment (mas Serum = 3.8 1.3-3.2 complet globuli 017 gm/dL ed n 11:30 measure ment (mass/v olume) Estimat = 54 59- complet ed 017 ML/MIN ed glomeru 11:30 lar filtrat ion rate (GF Comment: REFERENCE RANGE: >60 ML/MIN/1.73 SQUARE METERS Comment: If this patient is -[place]hutanese, then multiply the Comment: result by 1.210. Estimat 11-25-2 = 61 50-200 complet ion of 017 ML/MIN ed creatin 11:30 ine renal clearan ce Serum 1125-2 = 1.0 0.55-1. complet or 017 mg/dL 02 ed plasma 11:30 creatin ine measure ment ( Carbon 11-25-2 = 29 21.0-32 complet dioxide 017 mmoL/L .0 ed 11:30 measure ment Serum 11-25-2 = 100 98-107 complet or 017 mmoL/L ed plasma 11:30 chlorid e measure ment (mo Serum 11-25-2 = 9.2 8.5-10. complet or 017 mg/dL 1 ed plasma 11:30 calcium measure ment (mas Serum 1125-2 = 13 7-18 complet or 017 mg/dL ed plasma 11:30 urea nitroge n measure men Serum 1125-2 = 0.8 0.2-1.0 complet or 017 mg/dL ed plasma 11:30 total bilirub in measure m Serum 25-2 = 45 46-116 complet or 017 U/L ed plasma 11:30 alkalin e phospha tase tank Serum 11-25-2 = 3.3 3.4-5.0 complet or 017 gm/dL ed plasma 11:30 albumin measure ment (mas Serum 25-2 = 0.9 1.1-1.8 complet or 017 ed plasma 11:30 albumin /globul in mass ra Hemoglobin.gastrointestinal [Presence] in Stool (10-12-2016 05:00) Hemoglo NEGATIV NEG complet bin.gas 017 E ed trointe 05:00 stinal [Presen ce] in Stool --1st specime n Hemoglobin.gastrointestinal [Presence] in Stool (10-11-2016 08:00) Hemoglo NEGATIV NEG complet bin.gas 017 E ed trointe 08:00 stinal [Presen ce] in Stool --1st specime n Hemoglobin.gastrointestinal [Presence] in Stool (10-10-2016 08:30) Hemoglo NEGATIV NEG complet bin.gas 017 E ed trointe 08:30 stinal [Presen ce] in Stool --1st specime n Blood product special preparation [Type] (10-05-2016 11:51) Blood BLOOD complet product 017 UNIT ed 11:51 RELEASE special prepara tion [Type] Blood product special preparation [Type] (10-05-2016 09:45) Blood BLOOD complet product 017 UNIT ed 09:45 RELEASE special prepara tion [Type] Blood type & Crossmatch panel in Blood (10-04-2016 13:59) Blood NEGATIV NEGATIV complet group 017 E E ed antibod 13:59 y screen [Presen ce] in Serum or Plasma Rh POSITIV complet [Type] 017 E ed in 13:59 Blood ABO O complet group 017 ed [Type] 13:59 in Blood Blood type & Crossmatch panel in Blood (10-04-2016 13:59) Major COMPAT complet crossma 017 ed tch 13:59 [interp retatio n] Major COMPAT complet crossma 017 ed tch 13:59 [interp retatio n] by [employer] te spin
--- OUTSIDE RECORDS SUMMARY | 2017-03-09 10:52 | External Medical Summary Rpt | CCD ---
Author Author , DAVIS Organization DAVIS Address Unknown Phone [email or web address] Purpose Continuity of Care Document - 10-02-2016 [...] OCC O complet leukocy 017 wbc/hpf ed lc 11:35 count (number /volume ) Urine 0.2 [...] blood 11:30 platele t mean volume tank [place] % = 6.1 % 1.7-9.3 complet 017 [...] SQUARE METERS Comment: If this patient is -[place], then multiply the Comment: result by 1.210. [...]
--- OUTSIDE RECORDS SUMMARY | 2017-03-09 10:53 | External Medical Summary Rpt | CCD ---
Demographics Preferred Language Uzbek Marital Status Unknown Advent Affiliation Unknown Race Unknown Ethnic Group Unknown Author Author , DAVIS CANNON Address Unknown Phone Immunization No patient found.
--- OUTSIDE RECORDS SUMMARY | 2017-03-09 10:53 | External Medical Summary Rpt | CCD ---
Demographics Preferred Language Telugu Marital Status Unknown Taoist Affiliation Unknown Race Unknown Ethnic Group Unknown Author Author , DAVIS CANNON Address Unknown Phone Immunization No patient found.
--- OUTSIDE RECORDS SUMMARY | 2017-03-09 10:54 | External Medical Summary Rpt ---
Author Author [facility] Bernardo, [employer] Address Unknown Phone Unavailable Results Urinalysis dipstick W Reflex Microscopic panel in Urine Observa Value Referen Units Interpr Notes Date tion ce etation Range Appeara CLEAR CLEAR No No No Mar 03 nce of informa informa informa 2017 Urine tion in tion in tion in 11:35 source source source AM data data data Bacteri 1+ O No No No Mar 03 a informa informa informa 2016 [Presen tion in tion in tion in 11:35 ce] in source source source AM Urine data data data sedimen t by Light microsc opy Bilirub NEGATIV NEG No No No Mar 03 in E informa informa informa 2016 [Presen tion in tion in tion in 11:35 ce] in source source source AM Urine data data data by Test strip Erythro NEGATIV NEG No No No Mar 03 cytes E informa informa informa 2016 [Presen tion in tion in tion in 11:35 ce] in source source source AM Urine data data data Color YELLOW YELLOW No No No Mar 03 of informa informa informa 2017 Urine tion in tion in tion in 11:35 source source source AM data data data Glucose NEG No No No Mar 03 [Mass/vol informati informati informati 2017 ume] in on in on in on in 11:35 AM Urine by source source source Test data data data strip Ketones NEGATIV NEG mg/dL No No Mar 03 E informa informa 2017 [Presen tion in tion in 11:35 ce] in source source AM Urine data data by Automat ed test strip Mucus NEGATIV NEG No No No Mar 03 [Presen E informa informa informa 2016 ce] in tion in tion in tion in 11:35 Urine source source source AM sedimen data data data t by Light microsc opy Mucus 1+ OCC No No No Mar 03 [Presen informa informa informa 2016 ce] in tion in tion in tion in 11:35 Urine source source source AM sedimen data data data t by Light microsc opy Nitrite NEGATIV NEG No No No Mar 03 E informa informa informa 2016 [Presen tion in tion in tion in 11:35 ce] in source source source AM Urine data data data by Test strip pH of 5.0 - 8.5 No Normal No Mar 03 Urine informati informati 2017 on in on in 11:35 AM source source data data Protein NEG mg/dL No No Mar 03 [Mass/vol informati informati 2017 ume] in on in on in 11:35 AM Urine by source source Automated data data test strip Specific 1.005 - No Normal No Mar 03 gravity 1.030 informati informati 2017 of Urine on in on in 11:35 AM source source data data Epithel OCC 0 - 5 #/hpf No No Mar 03 ial informa informa 2017 cells.s tion in tion in 11:35 quamous source source AM data data [Presen ce] in Urine sedimen t by Microsc opy high power field Urobili 0.2 NEG E.U./dL No No Mar 03 nogen informa informa 2016 [Presen tion in tion in 11:35 ce] in source source AM Urine data data by Test strip Leukocyte O wbc/hpf No No Mar 03 s informati informati 2016 [#/volume on in on in 11:35 AM ] in source source Urine data data Urinalysis dipstick W Reflex Microscopic panel in Urine Observa Value Referen Units Interpr Notes Date tion ce etation Range Appeara CLEAR CLEAR No No No Mar 03 nce of informa informa informa 2016 Urine tion in tion in tion in 11:35 source source source AM data data data Bilirub NEGATIV NEG No No No Mar 03 in E informa informa informa 2016 [Presen tion in tion in tion in 11:35 ce] in source source source AM Urine data data data by Test strip Erythro NEGATIV NEG No No No Mar 03 cytes E informa informa informa 2016 [Presen tion in tion in tion in 11:35 ce] in source source source AM Urine data data data Color YELLOW YELLOW No No No Mar 03 of informa informa informa 2016 Urine tion in tion in tion in 11:35 source source source AM data data data Glucose NEG No No No Mar 03 [Mass/vol informati informati informati 2016 ume] in on in on in on in 11:35 AM Urine by source source source Test data data data strip Ketones NEGATIV NEG mg/dL No No Mar 03 E informa informa 2016 [Presen tion in tion in 11:35 ce] in source source AM Urine data data by Automat ed test strip Mucus NEGATIV NEG No No No Mar 03 [Presen E informa informa informa 2016 ce] in tion in tion in tion in 11:35 Urine source source source AM sedimen data data data t by Light microsc opy Nitrite NEGATIV NEG No No No Mar 03 E informa informa informa 2016 [Presen tion in tion in tion in 11:35 ce] in source source source AM Urine data data data by Test strip pH of 5.0 - 8.5 No Normal No Mar 03 Urine informati 2016 on in on in 11:35 AM source source data data Protein NEG mg/dL No No Mar 03 [Mass/vol informati informati 2016 ume] in on in on in 11:35 AM Urine by source source Automated data data test strip Specific 1.005 - No Normal No Mar 03 gravity 1.030 ati 2016 of Urine on in on in 11:35 AM source source data data Urobili 0.2 NEG E.U./dL No No Mar 03 nogen informa inform2016 [Presen tion in tion in 11:35 ce] in source source AM Urine data data by Test strip CBC W Auto Differential panel in Blood Observa Value Referen Units Interpr Notes Date tion ce etation Range Basophils 0 - 0.2 K/MM3 Normal No Mar 032016 [#/volume on in 11:30 AM ] in source Blood by data Automated count Basophils 0.1 - 2.0 % Normal No Feb 25 /100 2016 leukocyte on in 11:30 AM s in source Blood by data Automated count Eosinophi 0.0 - 0.4 K/mm3 Normal No Feb 25 ls 2016 [#/volume on in 11:30 AM ] in source Blood by data Automated count Eosinophi 0.1 - % Normal No Mar 03 ls/100 12.0 inform2016 leukocyte on in 11:30 AM s in source Blood by data Automated count Granulocy 1.8 - 7.8 K/mm3 Normal No Mar 03 lc informati 2016 [#/volume on in 11:30 AM ] in source Blood by data Automated count Granulocy 37.0 - % Normal No Mar 03 lc/100 80.0 inform2016 leukocyte on in 11:30 AM s in source Blood by data Automated count Hematocri 37.0 - % Normal No Mar 03 t [Volume 47.0 informati 2016 on in 11:30 AM Fraction] source of Blood data Hemoglobi 12.2 - g/dL Normal Mar 03 n 16.2 informati 2016 [Mass/vol on in 11:30 AM ume] in source Blood data Lymphocyt 0.7 - 4.5 K/mm3 Normal No Mar 03 es inform2016 [#/volume on in 11:30 AM ] in source Unspecifi data ed specimen by Automated count Lymphocyt 10 - 50.0 % Normal Mar 03 es inform2016 [#/volume on in 11:30 AM ] in source Unspecifi data ed specimen by Automated count Erythrocy 27 - 31.2 pg High Mar 03 te mean inform2016 corpuscul on in 11:30 AM ar source hemoglobi data n [Entitic mass] Erythrocy 31.8 - g/dl Normal Mar 03 te mean 35.4 inform2016 corpuscul on in 11:30 AM ar source hemoglobi data n concentra tion [Mass/vol ume] by Automated count Erythrocy 82.2 - fl High Mar 03 te mean 97.8 informati 2016 corpuscul on in 11:30 AM ar volume source [Entitic data volume] by Automated count Monocytes 0.1 - 1.0 K/mm3 Normal Mar 03 informati 2016 [#/volume on in 11:30 AM ] in source Blood by data Automated count Monocytes 1.7 - 9.3 % Normal No Mar 03 /100 inform2016 leukocyte on in 11:30 AM s in source Blood by data Automated count Platelet 7.4 - fl Normal Mar 03 mean 10.4 informati 2016 volume on in 11:30 AM [Entitic source volume] data in Blood by Automated count Platelets 142 - 424 K/mm3 Normal No Mar 03 inform2016 [#/volume on in 11:30 AM ] in source Blood data Erythrocy 4.2 - 5.4 M/mm3 Low No Mar 03 lc inform2016 [#/volume on in 11:30 AM ] in source Amniotic data fluid Erythrocy 11.5 - % Normal No Mar 03 te 17.5 2016 distribut on in 11:30 AM ion width source [Entitic data volume] by Automated count Leukocyte 4.8 - K/MM3 Normal No Mar 03 s 10.8 inform2016 [#/volume on in 11:30 AM ] in source Blood data Erythrocyte sedimentation rate by Westergren method Observa Value Referen Units Interpr Notes Date tion ce etation Range Erythrocy 0 - 30 mm/hr High No Mar 03 te 2016 sedimenta on in 11:30 AM tion rate source by data Westergre n method Comprehensive metabolic 2000 panel in Serum or Plasma Observa Value Referen Units Interpr Notes Date tion ce etation Range Albumin/G 1.1 - 1.8 No Low Mar 03 lobulin informati informati 2016 [Mass on in on in 11:30 AM ratio] in source source Serum or data data Plasma Albumin 3.4 - 5.0 gm/dL Low Mar 03 [Mass/vol informati 2016 ume] in on in 11:30 AM Serum or source Plasma data Alkaline 46 - 116 U/L Low No Mar 03 phosphata 2016 se on in 11:30 AM [Enzymati source c data activity/ volume] in Serum or Plasma Bilirubin 0.2 - 1.0 mg/dL Normal Mar 03 .total informati 2016 [Mass/vol on in 11:30 AM ume] in source Serum or data Plasma Urea 7 - 18 mg/dL Normal Mar 03 nitrogen informati 2016 [Mass/vol on in 11:30 AM ume] in source Serum or data Plasma Calcium 8.5 - mg/dL Normal Mar 03 [Mass/vol 10.1 informati 2016 ume] in on in 11:30 AM Serum or source Plasma data Chloride 98 - 107 mmoL/L Normal Mar 03 [Moles/vo informati 2016 lume] in on in 11:30 AM Serum or source Plasma data Carbon 21.0 - mmoL/L Normal Mar 03 dioxide, 32.0 informati 2016 total on in 11:30 AM [Moles/vo source lume] in data Serum or Plasma Creatinin 0.55 - mg/dL Normal No Mar 03 e 1.02 informati 2016 [Mass/vol on in 11:30 AM ume] in source Serum or data Plasma Creatinin 50 - 200 ML/MIN Normal No Mar 03 e renal informati 2017 clearance on in 11:30 AM source predicted data by Cockcroft -Gault formula Estimated 59- ML/MIN Low REFERENCE Mar 03 RANGE: 2016 glomerula >60 11:30 AM r ML/MIN/1. filtratio 73 SQUARE n rate METERSIf (GF this patient is -A merican, then multiply theresult by 1.210. Globulin 1.3 - 3.2 gm/dL High No Mar 03 [Mass/vol informati 2016 ume] in on in 11:30 AM Serum source data Glucose 74 - 106 mg/dL High No Mar 03 [Mass/vol informati 2016 ume] in on in 11:30 AM Serum or source Plasma data Potassium 3.5 - 5.1 mmoL/L Normal No Mar [id number] [Moles/vo on in 11:30 AM lume] in source Serum or data Plasma Sodium 136 - 145 mmoL/L Normal No Mar 03 [Moles/vo informati 2016 lume] in on in 11:30 AM Serum or source Plasma data Aspartate 15 - 37 U/L Normal No Mar [id number] aminotran on in 11:30 AM sferase source [Enzymati data c activity/ volume] in Serum or Plasma Alanine 12 - 78 U/L Normal No Mar 03 aminotran 2016 sferase on in 11:30 AM [Enzymati source c data activity/ volume] in Serum or Plasma Protein 6.4 - 8.2 gm/dL Normal No Mar 03 [Mass/vol informati 2016 ume] in on in 11:30 AM Serum or source Plasma data Basic metabolic panel in Blood Observa Value Referen Units Interpr Notes Date tion ce etation Range Urea 7 - 18 mg/dL Normal No Sep 6 nitrogen informati 2016 [Mass/vol on in 12:29 PM ume] in source Serum or data Plasma Calcium 8.5 - mg/dL Normal No Dec 13 [Mass/vol 10.1 informati 2016 ume] in on in 12:29 PM Serum [...] 0 - 0.2 K/MM3 Normal No Nov 20 informati 2016 9:57 [#/volume on in AM ] in source Blood by data Automated count Basophils 0.1 - 2.0 % Normal No Nov 20 informati 2016 9:57 leukocyte on in AM s in source Blood by data Automated count Eosinophi 0.0 - 0.4 K/mm3 Normal No Nov 20 ls informati 2016 9:57 [#/volume on in AM ] in source Blood by data Automated count Eosinophi 0.1 - % Normal No Nov 20 ls/100 12.0 informati 2016 9:57 leukocyte on in AM s in source Blood by data Automated count Granulocy 1.8 - 7.8 K/mm3 Normal No Nov 20 lc informati 2016 9:57 [#/volume on in AM ] in source Blood by data Automated count Granulocy 37.0 - % Normal No Nov 20 lc/100 80.0 informati 2016 9:57 leukocyte on in AM s in source Blood by data Automated count Hematocri 37.0 - % Normal No Nov 14 t [Volume 47.0 informati 2017 9:57 on in AM Fraction] source of Blood data Hemoglobi 12.2 - g/dL Normal No Nov 14 n 16.2 informati 2017 9:57 [Mass/vol on in AM ume] in source Blood data Lymphocyt 0.7 - 4.5 K/mm3 Normal No Nov 20 es informati 2016 9:57 [#/volume on in AM ] in source Unspecifi data ed specimen by Automated count Lymphocyt 10 - 50.0 % Normal No Nov 20 es informati 2017 9:57 [#/volume on in AM ] in source Unspecifi data ed specimen by Automated count Erythrocy 27 - 31.2 pg High No Nov 20 te mean informati 2017 9:57 corpuscul on in AM ar source hemoglobi data n [Entitic mass] Erythrocy 31.8 - g/dl Low Nov 20 te mean 35.4 informati 2017 9:57 corpuscul on in AM ar source hemoglobi data n concentra tion [Mass/vol ume] by Automated count Erythrocy 82.2 - fl High No Nov 20 te mean 97.8 informati 2017 9:57 corpuscul on in AM ar volume source [Entitic data volume] by Automated count Monocytes 0.1 - 1.0 K/mm3 Normal No Nov 14 informati 2017 9:57 [#/volume on in AM ] in source Blood by data Automated count Monocytes 1.7 - 9.3 % Normal No Nov 14 /100 informati 2017 9:57 leukocyte on in AM s in source Blood by data Automated count Platelet 7.4 - fl Normal Nov 20 mean 10.4 informati 2017 9:57 volume on in AM [Entitic source volume] data in Blood by Automated count Platelets 142 - 424 K/mm3 Normal No Nov 14 informati 2017 9:57 [#/volume on in AM ] in source Blood data Erythrocy 4.2 - 5.4 M/mm3 Low No Nov 14 lc informati 2017 9:57 [#/volume on in AM ] in source Amniotic data fluid Erythrocy 11.5 - % Normal Nov 14 te 17.5 informati 2017 9:57 distribut on in AM ion width [...] Plasma Calcium 8.5 - mg/dL Normal No Nov 20 [Mass/vol 10.1 informati 2016 9:57 [...] 59- ML/MIN Low REFERENCE Nov 20 RANGE: 2016 9:57 glomerula >60 AM r ML/MIN/1. filtratio 73 SQUARE n rate METERSIf (GF this patient is -A merican, then multiply theresult by 1.210. Glucose 74 - 106 mg/dL High No Nov 20 [Mass/vol informati 2016 9:57 ume] in on in AM Serum or source Plasma data Potassium 3.5 - 5.1 mmoL/L Normal No Nov 20 informati 2016 9:57 [Moles/vo on in AM lume] in source Serum or data Plasma Sodium 136 - 145 mmoL/L Normal No Nov 20 [Moles/vo informati 2016 9:57 lume] in on in AM Serum or source Plasma data Hepatic function 2000 panel in Serum or Plasma Observa Value Referen Units Interpr Notes Date tion ce etation Range Albumin 3.4 - 5.0 gm/dL Low No Nov 20 [Mass/vol informati 2016 9:57 ume] in on in AM Serum or source Plasma data Alkaline 46 - 116 U/L Normal No Nov 20 phosphata informati 2016 9:57 se on in AM [Enzymati source c data activity/ volume] in Serum or Plasma Bilirubin 0.0 - 0.2 mg/dL Normal No Nov 14 .direct informati 2017 9:57 [Mass/vol on in AM ume] in source Serum or data Plasma Bilirubin 0 - 0.9 mg/dL Normal No Nov 14 .indirect informati 2017 9:57 on in AM [Mass/vol source ume] in data Serum or Plasma Bilirubin 0.2 - 1.0 mg/dL Normal No Nov 14 .total informati 2017 9:57 [Mass/vol on in AM ume] in source Serum or data Plasma Aspartate 15 - 37 U/L Normal No Nov 14 informati 2017 9:57 aminotran on in AM sferase source [Enzymati data c activity/ volume] in Serum or Plasma Alanine 12 - 78 U/L Normal No Nov 20 aminotran informati 2016 9:57 sferase on in AM [Enzymati source c data activity/ volume] in Serum or Plasma Protein 6.4 - 8.2 gm/dL Normal No Nov 20 [Mass/vol informati 2017 9:57 ume] in on in AM Serum or source Plasma data Free T4 & TSH panel in Serum or Plasma Observa Value Referen Units Interpr Notes Date tion ce etation Range Thyroxine 5.93 - ug/dl Normal No Nov 20 (T4) 13.13 informati 2016 9:57 free on in AM index in source Serum or data Plasma Triiodoth 31 - 39 % Normal No Nov 14 yronine informati 2016 9:57 (T3) on in AM resin source uptake in data Serum or Plasma Thyroxine 4.7 - ug/dl Normal No Nov 20 (T4) 13.3 informati 2016 9:57 [Mass/vol on in AM ume] in source Serum or data Plasma Thyrotrop 0.358 - uIU/ml No No Nov 14 in 3.740 informati informati 2017 9:57 [Units/vo on in on in AM [...] 4.5 K/mm3 Normal No Oct 30 es inform2016 [#/volume on in 10:55 AM ] in source Unspecifi data ed specimen by Automated count Lymphocyt 10 - 50.0 % Normal No Oct 30 es inform2016 [#/volume on in 10:55 AM ] in source Unspecifi data ed specimen by Automated count Erythrocy 27 - 31.2 pg Normal No Oct 30 te mean 2016 corpuscul on in 10:55 AM ar source hemoglobi data n [Entitic mass] Erythrocy 31.8 - g/dl Normal No Oct 30 te mean 35.4 2016 corpuscul on in 10:55 AM ar source hemoglobi data n concentra tion [Mass/vol ume] by Automated count Erythrocy 82.2 - fL Normal No Oct 30 te mean 97.8 2016 corpuscul on in 10:55 AM ar volume source [Entitic data volume] by Automated count Monocytes 0.1 - 1.0 K/mm3 Normal No Oct 302016 [#/volume on [...] 5.4 M/mm3 Low No Oct 30 lc informati 2016 [#/volume on in 10:55 AM ] in source Amniotic data fluid Erythrocy 11.5 - % Normal No Oct 30 te 17.5 ati 2016 distribut on in 10:55 AM ion width source [Entitic data volume] by Automated count Leukocyte 4.8 - K/mm3 Normal No Oct 30 s 10.8 informati 2016 [#/volume on in 10:55 AM [...] High No Oct 30 in time 11.8 informati 2016 (PT) in on in 10:55 AM [...] Plasma Observa Value Referen Units Interpr Notes ti etation Range Digoxin 1.15 - ng/mL Low [...] 7.8 K/mm3 Normal No Oct 26 lc inform2016 [#/volume on in 11:05 PM ] in source Blood by data Automated count Granulocy 37.0 - % Normal No Oct 26 lc/100 80.0 inform2016 leukocyte on in 11:05 PM s in source Blood by data Automated count Hematocri 37.0 - % Normal No Oct 26 t [Volume 47.0 informati 2016 on in 11:05 PM Fraction] source of Blood data Hemoglobi 12.2 - g/dL Normal No Oct 26 n 16.2 informati 2016 [Mass/vol on in 11:05 PM ume] in source Blood data Lymphocyt 0.7 - 4.5 K/mm3 Normal No Oct 26 es informati 2016 [#/volume on in 11:05 PM ] in source Unspecifi data ed specimen by Automated count Lymphocyt 10 - 50.0 % Normal No Oct 26 es inform2016 [#/volume on in 11:05 PM ] [...] High No Oct 26 te mean 97.8 inform2016 corpuscul on in 11:05 PM ar volume source [Entitic data volume] by Automated count Monocytes 0.1 - 1.0 K/mm3 Normal No Oct 262016 [#/volume on in 11:05 PM ] in source Blood by data Automated count Monocytes 1.7 - 9.3 % Normal No Oct 26 / inform2016 leukocyte on in 11:05 PM s in source Blood by data Automated count Platelet 7.4 - fl Normal No Oct 26 mean 10.4 2016 volume on in 11:05 PM [Entitic source volume] data in Blood by Automated count Platelets 142 - 424 K/mm3 Normal No Oct 26 inform2016 [#/volume on in 11:05 PM ] in source Blood data Erythrocy 4.2 - 5.4 M/mm3 Low No Oct 26 lc informati 2016 [#/volume on in 11:05 PM ] in source Amniotic data fluid Erythrocy 11.5 - % Normal No Oct 26 te 17.5 informati 2016 distribut on in 11:05 PM ion width source [Entitic data volume] by Automated count Leukocyte 4.8 - K/MM3 Normal No Oct 26 s 10.8 inform2016 [#/volume on in 11:05 PM ] in source Blood data Hemoglobin.gastrointestinal [Presence] in Stool Observa Value Referen Units Interpr Notes Date tion ce etation Range Hemoglo NEGATIV NEG No No No Oct 12 bin.gas E informa informa informa 2016 trointe tion in in in 5:00 AM stinal source source source [Presen data data data ce] in Stool --1st specime n Hemoglobin.gastrointestinal [Presence] in Stool Observa Value Referen Units Interpr Notes Date ti ce etation Range Hemoglo NEGATIV NEG No No No Oct 11 bin.gas E informa informa informa 2016 trointe tion in in in 8:00 AM stinal source source source [Presen data data data ce] in Stool --1st specime n Hemoglobin.gastrointestinal [Presence] in Stool Observa Value Referen Units Interpr Notes Date ti ce etation Range Hemoglo NEGATIV NEG No No No Oct 10 bin.gas E informa informa informa 2016 trointe tion in in in 8:30 AM stinal source source source [Presen data data data ce] in Stool --1st specime n Hemoglobin & Hematocrit panel in Blood Observa Value Referen Units Interpr Notes Date ti ce etation Range Hematocri 37.0 - % Low No Oct 05 t [Volume 47.0 informati 2016 3:10 on in PM Fraction] source of Blood data Hemoglobi 12.2 - g/dL Low No Oct 05 n 16.2 informati 2016 3:10 [Mass/vol on in PM ume] in source Blood data Blood product special preparation [Type] Observa Value Referen Units Interpr Notes Date tion ce etation Range Blood BLOOD No No No BLOOD Oct 05 product UNIT informa informa informa UNIT # 2017 RELEASE tion in ti in in : W0382 11:51 special source source source 17 AM data data data [id number] prepara RELEASE tion D [Type] 7Boyers ,Lucind aO POSITIV E Blood product special preparation [Type] Observa Value Referen Units Interpr Notes Date tion ce etation Range Blood BLOOD No No No BLOOD Oct 05 product UNIT informa informa informa UNIT # 2017 RELEASE tion in tion in tion in : W0382 9:45 AM special source source source 17 data data data [id number] prepara RELEASE tion D [Type] 7Boyers ,Lucind aO POSITIV E Protein Electrophoresis Observa Value Referen Units Interpr Notes Date tion ce etation Range Protein 6.0 - 8.5 g/dL No No Sep 28 [Mass/vol informati informati 2017 2:05 ume] in on in on in PM Serum or source source Plasma data data Please Comment . No No Protein Oct 04 note: informa informa 2017 tion in tion in electro 2:05 PM source source phoresi data data s scan will follow via compute r,mail, or manager deliver Ashleigho rmed at: [facility] - [facility] [place] [id number] Directo r: Surinder teixeira PhD, Phone: [phone] Albumin 2.9 - 4.4 g/dL No No Oct 04 [Mass/vol informati [...] 2 0.4 - 1.0 g/dL No No [place] 28 globulin informati informati 2017 2:05 [Mass/vol on in on in PM ume] in source source Serum or data data Plasma by Electroph oresis Beta 0.7 - 1.3 g/dL No No [place] 28 globulin informati informati 2017 2:05 [Mass/vol on in on in PM ume] in source source Serum or data data Plasma by Electroph oresis Gamma 0.4 - 1.8 g/dL No No [place] 28 globulin informati informati 2017 2:05 [Mass/vol on [...] No No Oct 04 [Mass/vol informati informati 2016 2:05 ume] in on in on in [...] Interpr Notes Date tion ce etation Range Blood NEGATIV NEGATIV No No No Oct 04 group E E informa informa informa 2016 antibod tion in tion in tion in [...] Observa Value Referen Units Interpr Notes Date ce etation Range Major COMPAT No No [...] Observa Value Referen Units Interpr Notes Date ce etation Range Basophils 0 - 0.2 K/MM3 Normal No Oct 022016 [#/volume on in 11:20 AM ] in source Blood by data Automated count Basophils 0.1 - 2.0 % Normal No Oct 02 / inform2016 leukocyte on in 11:20 AM s in source Blood by data Automated count Eosinophi 0.0 - 0.4 K/mm3 Normal No Oct 02 ls 2016 [#/volume on in 11:20 AM ] in source Blood by data Automated count Eosinophi 0.1 - % Normal No Oct 02 ls/100 12.0 2016 leukocyte on in 11:20 AM s in source Blood by data Automated count Granulocy 1.8 - 7.8 K/mm3 High No Oct 02 lc 2016 [#/volume on in 11:20 AM ] in source Blood by data Automated count Granulocy 37.0 - % Normal No Oct 02 lc/100 80.0 2016 leukocyte on in 11:20 AM s in source Blood by data Automated count Hematocri 37.0 - % Low Oct 02 t [Volume 47.0 2016 on in 11:20 AM Fraction] source of Blood data Hemoglobi 12.2 - g/dL Low No Oct 02 n 16.2 2016 [Mass/vol on in 11:20 AM ume] in source Blood data Lymphocyt 0.7 - 4.5 K/mm3 Normal No Oct 02 es 2016 [#/volume on in 11:20 AM ] in source Unspecifi data ed specimen by Automated count Lymphocyt 10 - 50.0 % Normal No Oct 02 es informati 2016 [#/volume on in 11:20 AM ] in source Unspecifi data ed specimen by Automated count Erythrocy 27 - 31.2 pg High No Oct 02 te mean informati 2016 corpuscul on in 11:20 AM ar source hemoglobi data n [Entitic mass] Erythrocy 31.8 - g/dl Low No Oct 02 te mean 35.4 informati 2016 corpuscul on in 11:20 AM ar source [...]
--- OUTSIDE RECORDS SUMMARY | 2017-03-09 10:54 | External Medical Summary Rpt ---
[...] source source 17 AM data data data [id number] prepara RELEASE tion D [Type] 7Boyers ,Lucind aO POSITIV E Blood product special preparation [Type] Observa Value Referen Units Interpr Notes Date tion ce etation Range Blood BLOOD No No No BLOOD Oct 05 product UNIT informa informa informa UNIT # 2017 RELEASE tion in tion in tion in : W0382 9:45 AM special source source source 17 data data data [id number] prepara RELEASE tion D [Type] 7Boyers ,Lucind [...] scan will follow via compute r,mail, or environmental health safety engineer deliver Ashleigho rmed at: [facility] - [facility] [place] [id number] Directo r: Surinder teixeira PhD, Phone: [phone] Albumin 2.9 - 4.4 g/dL No No [...]
--- NOTE | 2017-03-09 10:59 | Emergency Room Report ---
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 N Clinical Suspician of Infection? N Mental Status: 1 - Regular (Normal Baseline) Sepsis Risk:Low Sepsis Risk Have you (or family members/close friends) recently traveled outside the [place]? N If Yes, where/when: Have you had exposure to infectious disease within the past month? N TB? Other? 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 She is already on Percocet and Lidocaine cream. She stays constipated. She is here because her pain is not better. No acute neurological symptoms. She has a rolling walker at home. ALLERGIES Coded Allergies: No Known Allergies (10/27/16) Home Medications Active Scripts Metoprolol Tartrate (Metoprolol 25MG) 50 MG PO BID #60 TAB Ref 2 Prov: 10/27/16 Amiodarone Hcl 400 MG PO BID #60 TAB Prov: 11/01/16 Diltiazem Hcl (Cardizem Cd 120MG Cap) 120 MG PO DAILY #30 CAP Prov: 11/01/16 Prednisone (Prednisone 20MG) 20 MG PO BID #6 TAB Prov: 03/03/17 OXYCODONE HCL/ACETAMINOPHEN (Percocet 7.5-325 MG Tablet) 1 TAB PO Q6HP PRN pain #10 TAB Prov: 03/03/17 ONDANSETRON HCL (Zofran 4MG Tab) 4 MG PO Q6HP PRN NAUSEA AND VOMITING #20 TAB Prov: 03/03/17 HYDROCODONE/ACETAMINOPHEN ([place] 5-325 Tablet) 1 TAB PO Q8HP PRN moderate to severe pain #8 TAB Prov: 03/02/17 Reported Medications Alprazolam (Xanax 0.5MG) 0.5 MG PO BIDP Lovastatin 20 MG PO QHS DULOXETINE HCL (Cymbalta 60MG) 30 MG PO DAILY Ferrous Sulfate (Ferrous Sulfate 325MG) 325 MG PO DAILY Prednisone 5 MG PO QAM VITAMIN B12 (Cyanocobalamin Injection) 1 ML IM DAILY CHOLECALCIFEROL (VITAMIN D3) (Vitamin D) 1 TAB PO DAILY Misoprostol (Cytotec 200MCG Tab) 200 MCG PO BID #60 TAB Levothyroxine Sodium 0.05 MG PO DAILY #90 Apixaban (Eliquis) 5 MG PO BID Omeprazole (Omeprazole 20MG) 20 MG PO DAILY History Medical History General CAD? No Angina: No [place]: No Hypertension? Yes Hyperlipidemia? Yes CHF? No DVT? No PE? No COPD? No Asthma? No Anemia? No GERD? Yes Gastric ulcers? No GI Bleed? No Hernia? No Thyroid Problems? Yes Hypothyroidism? Yes CVA? No Seizures? No Diabetes? No Renal Insuffiency? No End Stage Renal Disease? No UTI? Yes Stones? Yes BPH? No GB Disease: Yes Nephritic Syndrome? No Asplenia? No Hepatitis? No Sickle Cell Disease? No Arthritis? Yes Migraines? No Cataracts? No Glaucoma? No MRSA? No HIV? No TB? No Anxiety? Yes Depression? No Cancer? No More? Yes Additional hx: FIBROMYALGIA AFIB Immunization Hx DT/Tetanus > 10 Years Ago Flu [id number] Pneumonia Refuses Surgical Hx Previous Surgery?Y ANGIOGRAM 30 YRS AGO COLONOSCOPY FB REMOVAL LEFT LEG LAP [facility] (02/26/06) Family History Family Hx Diabetes No CAD Yes Hypertension Yes Hyperlipidemia Yes Cancer No TB No Social History Smoking Hx Smoker: Never Smoker Tobacco: No Packs/day < 1 Pack Alcohol Alcohol: No Review of Systems All Other Systems Reviewed and Negative Musculoskeletal see HPI Physical Exam Vital Signs Vital Signs Date Time Temp Pulse Resp B/P Pulse O2 O2 Flow FiO2 Ox Delivery Rate 03/09 1018 97.9 67 18 131/71 99 2 General Appearance normal appearance, WD/WN, no apparent distress Eye Exam - bilateral eye normal exam, bilateral eye PERRL, bilateral eye EOMI Neck normal inspection, non-tender, supple, full range of motion Respiratory Status Yes: trachea midline, chest symmetrical, non tender chest. No: respiratory distress, tender on palpation, use of accessory muscles, pain on inspiration, pain on expiration, productive cough, non productive cough. Lung Sounds bilateral: normal breath sounds, lungs clear. Cardiovascular normal exam, regular rate/rhythm, no peripheral edema, no gallop, no JVD, no murmur, no rub, normal peripheral pulses Gastrointestinal normal bowel sounds, normal exam, non tender, soft, no organomegaly, no guarding, no rebound Back normal inspection, no CVA tenderness, bowel/bladder continent, gait normal, strt leg raising(L)-NML, strt leg raising(R)-NML, vertebral tenderness (mid lumbar area tender) Extremities non-tender, normal range of motion, normal inspection, normal capillary refill, no calf tenderness, no pedal edema, pelvis stable Strength 4 Upper Ext (L), 4 Upper Ext (R), 4 Lower Ext (L), 4 Lower Ext (R) Neurologic alert, normal exam, no motor/sensory deficits, oriented x 3 Glascow Coma Scale Glascow Coma Scale Response Value EYE response: 4 Spontaneously 4 MOTOR response: 6 OBEYS 6 VERBAL response: 5 Oriented & Converses 5 Total 15 Reflexes DTR 2+ ankle (R), 2+ ankle (L) Skin intact, normal color, warm/dry, no rash cons.w/shingles Medical Decision Making LABS/Meds/Orders Pt receiving controlled substance in ED? No Results/Orders Orders Procedure Date/time Status CT LUMBAR SPINE W/O CONTRAST 03/[address] SCAN REQUEST 03/09 1035 Active Consult MD Physician Consult Time Called 1056 Comments d/w Dr. Smtih: ok to take occasional low dose NSAID's at night for breakthrough pain and f/u w/ him. Departure Departure Time of Disposition 1057 Disposition DC Home or Self Care(routine) Clinical Impression Primary Impression: Low back pain Condition STABLE Referrals Luis GARVEY,[place] (Family) Patient Instructions Low Back Pain Additional Instructions Dr. Smith says it's okay to take OCCASIONAL-- NOT DAILY--Ibuprofen over the counter for breakthrough pain. You may follow up with him as needed. Continue narcotics and Lidocaine cream. Discharge Counseling Counseled pt/family regarding diagnosis, medications/RX, home care, follow up needs ED Critical Care Critical Care No at [id number]
[2017-03-09 11:05] VITALS: BP 131/71
[2017-03-19] MEDS ORDERED: PERCOCET 10 MG1 EACH PO (15:47)
[2017-03-28] MEDS ORDERED: LOSARTAN POTASS50 MG PO (20:40)
[2017-03-28] MEDS ORDERED: AMIODARONE 200200 MG PO (20:41)
[2017-03-28] MEDS ORDERED: PERCOCET 5/3251 EACH PO (20:43)
== END 2017-03-09 11:32 | disposition home or self-care (01) ==
LOC: ER 10:16
DX: M54.5 Low back pain (principal); W01.0XXA Fall on same level from slipping, tripping and stumbling without subsequent striking against object, initial encounter; Z91.81 History of falling; Y92.012 Bathroom of single-family (private) house as the place of occurrence of the external cause; K59.09 Other constipation; I10 Essential (primary) hypertension; K21.9 Gastro-esophageal reflux disease without esophagitis; F41.9 Anxiety disorder, unspecified; E78.5 Hyperlipidemia, unspecified; Z79.899 Other long term (current) drug therapy

== ENCOUNTER → 2017-03-22 | Outpatient (CLI) | payer MEDICARE ==
[~2017-03-22] MED LIST changes: +CYMBALTA30 MG PO; -CYMBALTA60 MG PO; +LOSARTAN POTASS50 MG PO; +METOPROLOL SUCC50 M4 PO; +PERCOCET 10 MG1 EACH PO; +PERCOCET 5/3251 EACH PO
--- NOTE | 2017-03-23 07:03 | RADIOLOGY REPORT PS360 ---
MRI-L-SPINE W/O HISTORY: ACUTE COMPRESSION FX, low back pain, acute compression fracture, bilateral feet numbness ORDERING PHYSICIAN: DEB CANO CRNA PATIENT AGE: 76 years COMPARISON: CT scan of 03/03/2017 TECHNIQUE: Standard multiplanar multiecho sequences are performed without contrast including sagittal T1, T2, and STIR images as well as axial T1 and T2-weighted images.. 3-D MIP and myelographic images are also rendered and reviewed FINDINGS: The spinal cord ends at the L1-L2 level. There is normal alignment. T11-L2 have an unremarkable appearance. There is an acute comminuted burst fracture involving the L3 vertebral body.. The compressive changes are greater along the central aspect of the vertebral body. Compression changes here are approximately 40%. The compression changes along the most anterior aspect of the vertebral body is approximately 20%. There is bulging disc at the L2-L3 level with a small central disc herniation with superior extrusion of the disc. This is slightly eccentric toward the right.. Facet and ligamentum flavum hypertrophy are present at this level as well with resultant severe bilateral lateral recess narrowing greater on the right with moderate right and mild left foraminal narrowing. There is cortical buckling along the posterior aspect of the L3 vertebral body with minimal retropulsion of the posterior superior aspect of L3 of approximately 3 mm. The posterior elements appear intact. A compression fracture however does extend to the posterior aspect of the vertebral body to the vertebral body pedicle junction on both sides. The fracture does not appear to extend into the pedicles. L3-L4: Degenerative disc disease with bulging disc with facet and ligamentum flavum hypertrophy with transverse canal stenosis along with bilateral lateral recess and foraminal narrowing. L4-L5: Degenerative disc disease with bulging disc along with facet and ligamentum flavum hypertrophy with transverse canal stenosis and bilateral lateral recess and foraminal narrowing. IMPRESSION: 1. Burst fracture of the L3 vertebral body. This compression fracture does involve the posterior cortex of the vertebral body indicating a burst fracture. The fracture extends to but does not involve the pedicles. There is loss of height centrally of 40% and there is minimal retropulsion of the posterior superior aspect of the vertebral body x 3 mm. 2. Small central disc herniation with superior extrusion at L2-L3 slightly eccentric to the right. There is bilateral lateral recess and foraminal narrowing. 3. Degenerative disc disease with bulging disc with facet and ligamentum flavum hypertrophy with transverse canal stenosis at L3-L4 and L4-L5 with bilateral lateral recess and foraminal narrowing
== END ==
LOC: RAD 15:49
DX: S32.039A Unspecified fracture of third lumbar vertebra, initial encounter for closed fracture (principal); M54.5 Low back pain